=== PATIENT | female | born 1975 | race Caucasian/White ===

== ENCOUNTER 2022-08-22 13:58 | Emergency (ER) | payer BC, SELFPAY ==
--- NOTE | 2022-08-22 13:56 | ECG_ITS ---
APPROVED REPORT Exam: Resting ECG HR:71 bpm ECG Measurements Heart Rate 71 AXES NJ 139 P 59 QRSd 94 QRS 83 QT 374 T 69 QTc 397 Conclusion SINUS RHYTHM NORMAL ECG UNCONFIRMED REPORT Electronically signed by : Edwin Obrien MD 08/23/2022 09:23:13
[2022-08-22 14:01] VITALS: BP 115/64; PULSE 75; RESP 18; TEMP 36.8; O2SAT 100; BMI 31.5
--- NOTE | 2022-08-22 14:10 | XR_ITS ---
FINAL REPORT TECHNIQUE: Chest PA & Lateral CLINICAL HISTORY: chest pain FINDINGS: 2 views of the chest were performed. The heart size is normal. The mediastinum is within normal limits. There is no acute cardiopulmonary process. There are no pleural effusions. There is no pneumothorax. The bony thorax appears intact. IMPRESSION: No acute cardiopulmonary process. Reviewed, Interpreted and Dictated by Star Smith III, MD Transcribed by Stanislav Tucker Authenticated and [facility]
--- NOTE | 2022-08-22 14:18 | HMH.EDGENADL ---
Discharge Plan Disposition Patient Disposition: Home, Self-Care Condition: Good Prescriptions Prescriptions: New metformin 500 mg tablet 500 mg PO BID Qty: 60 0RF Referrals Follow up/Referrals: Provider,Referral, MD [Primary Care Provider] - See instructions Activity Restrictions/Add. Instructions Additional Instructions/Restrictions: Take metformin as prescribed. You are being provided with a list of physicians available for follow-up of your condition. Please call a physician on this list to arrange a follow-up appointment as soon as possible. Clinical Impressions Clinical Impression: Acute hyperglycemia Discharge ED Provider: Ovidio Liu General Adult HPI General Chief complaint: Weakness Stated complaint: chest pain Time Seen by Provider: 08/22/22 14:27 Mode of Arrival: Wheelchair Source of Information: Patient Limitations: No Limitations Description of Symptoms (Recalled from ER Triage Doc. by RN): PT STATES SHE HASN'T FELT WELL FOR A WEEK, SHE STATES SHE HAS GOTTEN PROGRESSIVELY WORSE THE LAST 2 DAYS, VERY TIRED, POUNDING HEARTBEAT, CONSTANT HEADACHE, AND DIZZINESS History of Present Illness HPI narrative: Patient states that she has not felt bad for about a week. She says that she feels hot and cold and sweats at times, but temperature has been normal at home. She has taken her blood pressure and it has also been fine. She has used her relatives glucose meter and her blood sugar has been running high, which she says has happened 1 time previously, but says she has not been diagnosed with diabetes. She has headache, feels like her heart is beating hard but not fast. She feels woozy or dizzy. States she feels worse after she eats. States she does not have a primary care provider because she is never sick. States that she has a history of irritable bowel syndrome. She is a smoker. Denies alcohol use or drug use. Feels fatigued. Currently on her menses. Related Data Previous Rx's Medication Instructions Recorded metformin 500 mg tablet 500 mg PO BID #60 tabs 08/22/22 Allergies Allergy/AdvReac Type Severity Reaction Status Date / Time No Known Allergies Allergy Verified 08/22/22 14:07 [facility] Disclaimer: The information contained in this section may have been updated after the patient was seen, as this information can be updated by other users. Social History Smoking Status: Never smoker ROS Obtained: Yes Systems reviewed as appropriate & no additional complaints except as documented Constitutional Constitutional: Reports chills, Reports excessive sweating, Reports fatigue, Denies fever(s), Reports headache(s) and Reports weakness ENT Ears, Nose, Mouth, and Throat: Reports headache(s), Denies nasal discharge and Denies sore throat Cardiovascular Cardiovascular: Denies chest pain and Reports palpitations (Heart is beating hard ) Respiratory Respiratory: Denies shortness of breath and Denies cough Gastrointestinal Gastrointestingal: Denies abdominal pain, constipation, diarrhea or vomiting Genitourinary Female Genitourinary: Denies difficulty voiding, Denies dysuria, Denies flank pain and Reports urinary urgency (for months) Musculoskeletal Musculoskeletal: Denies numbness Neurologic Neurologic: Reports headache(s), Denies numbness and Reports weakness Endocrine Endocrine: Reports as per HPI, Reports excessive sweating, Reports fatigue, Reports palpitations (Heart is beating hard ) and Reports polyuria Physical Exam General General appearance: alert and in no apparent distress Head Head exam: atraumatic and normocephalic Eye Eye exam: Present normal appearance and EOMI ENT ENT exam: Present mucous membranes moist Neck Neck exam: Present normal inspection and trachea midline Chest Chest inspection: Present normal inspection and symmetric chest wall rise Respiratory Respiratory exam: Present normal lung sounds bilaterally; Absent respiratory distress Cardiov
[2022-08-22 14:23] LABS: Chloride 104 mmol/L (98-107)
[2022-08-22 14:24] LABS: Potassium 3.9 mmoL/L (3.5-5.1); Sodium 140 mmol/L (136-145)
[2022-08-22 14:26] LABS: Basophils # 0.2 K/mm3 (0-0.2); Basophils % 1.7 % (0.1-2.0); Blood Urea Nitrogen 20 mg/dl (7-17); Creatinine Clearance Estimated 124 mL/min (50-200); Eosinophils # 0.1 K/mm3 (0.0-0.4); Eosinophils % 1.1 % (0.1-12.0); Estimated Glomerular Filt Rate 68 ml/min (>60); GFR (African American) 82 ML/MIN (>60); Hemoglobin 16.3 g/dL (12.2-16.2); Lymphocytes # 3.2 K/mm3 (0.7-4.5); Lymphocytes % 32.8 % (10-50); Mean Corpuscular HGB Conc 32.6 g/dL (31.8-35.4); Mean Corpuscular Hemoglobin 30.2 pg (27.0-31.2); Mean Corpuscular Volume 92.5 fl (81-99); Mean Platelet Volume 7.2 fl (7.4-10.4); Monocytes # 0.5 K/mm3 (0.1-1.0); Monocytes % 5.5 % (1.7-9.3); Neutrophils # 5.7 K/mm3 (1.8-7.8); Neutrophils % 58.9 % (37.0-80.0); Platelet Count 322 K/mm3 (142-424); Red Blood Count 5.41 M/mm3 (4.20-5.40); Red Cell Distribution Width 13.9 % (11.5-17.5); White Blood Count 9.6 K/mm3 (4.8-10.8)
[2022-08-22 14:27] LABS: Anion Gap 12.9 mEq/L (5-15); Calcium 10.2 mg/dl (8.4-10.2); Carbon Dioxide 27 mmol/L (22.0-30.0); Glucose 157 mg/dl (74-100)
[2022-08-22 14:31] VITALS: BP 127/64; PULSE 69; O2SAT 99
[2022-08-22 14:41] LABS: Troponin I < 0.01 ng/ml (0.00-0.034)
--- NOTE | 2022-08-22 14:50 | PC.NURSE ---
Pt aware of need for urine sample.
[2022-08-22 14:51] LABS: Coronavirus 19, PCR Not Detected (NotDetected); Influenza A, PCR Not Detected (NotDetected); Influenza B, PCR Not Detected (NotDetected)
--- NOTE | 2022-08-22 14:57 | PC.NURSE ---
Assisted pt to bathroom. Provided supplies to collect urine sample.
[2022-08-22 15:10] VITALS: BP 145/81; PULSE 66; RESP 20; O2SAT 97
[2022-08-22 15:13] LABS: Alanine Aminotransferase 24 U/L (12-78); Albumin Level 4.3 g/dl (3.5-5.0); Alkaline Phosphatase 127 U/L (38-126); Aspartate Amino Transferase 30 U/L (14-36); Bilirubin,Direct 0.2 mg/dl (0.0-0.4); Bilirubin,Indirect 0.1 mg/dL (0.0-0.9); Bilirubin,Total 0.3 mg/dl (0.2-1.3); Total Protein,Serum 7.4 g/dl (6.3-8.2)
[2022-08-22 15:16] LABS: Microscopic, Urine URINE MICROSCOPIC (MICROSCOPIC)
[2022-08-22 15:20] LABS: Appearance,Urine CLEAR (Clear); Bilirubin,Urine Negative (Negative); Blood, Urine 3+ (Negative); Color,Urine YELLOW (Yellow); Glucose,Urine (UA) 2+ (Negative); Ketones,Urine Negative (Negative); Leukocyte Esterase,Urine Negative (Negative); Nitrate,Urine Negative (Negative); Protein,Urine Negative (Negative); Specific Gravity, Urine 1.025 (1.005-1.030); Urobilinogen,Urine 0.2 EU/dl (0.2)
[2022-08-22 15:31] VITALS: BP 124/65; PULSE 60; O2SAT 97
[2022-08-22 15:36] LABS: Squamous Epithelial Cell,Urine Occasional #/hpf (0-5); WBC,Urine Occasional #/hpf (0-3)
[2022-08-22 16:00] VITALS: BP 149/86; PULSE 61; O2SAT 97
--- NOTE | 2022-08-22 16:08 | PC.NURSE ---
Updated pt. Call light within reach. No questions or concerns voiced at this time.
[2022-08-22 16:29] VITALS: BP 121/58; PULSE 57; RESP 18; TEMP 36.8; O2SAT 97
[2022-08-22 16:33] LABS: Free Thyroxine Index 2.9 ug/dL (5.93-13.13); T4 (Thyroxine) 9.1 ug/dl (5.53-11.0); Triiodothryronine (T3) Uptake 32 % (23.5-40.5)
[2022-08-22 16:47] LABS: Thyroid Stimulating Hormone 2.26 uIU/mL (0.465-4.68)
== END 2022-08-22 16:31 | disposition home or self-care (01) ==
PROVIDERS: Emergency Provider Emergency Medicine
DX: R07.9 Chest pain, unspecified (principal); R00.2 Palpitations; R73.9 Hyperglycemia, unspecified; R42 Dizziness and giddiness; R53.1 Weakness; R61 Generalized hyperhidrosis; Z20.822 Contact with and (suspected) exposure to COVID-19; R51.9 Headache, unspecified; R53.82 Chronic fatigue, unspecified; F17.210 Nicotine dependence, cigarettes, uncomplicated; Z79.84 Long term (current) use of oral hypoglycemic drugs
CPT/HCPCS: 71046; 80048; 80076; 81001; 83036; 84436; 84443; 84479; 84484; 85025; 93005; 99284; C9803; U0003; U0005

== ENCOUNTER → 2023-03-28 14:03 | Outpatient (CLI) | payer BC, SELFPAY ==
[2023-03-28 14:53] LABS: Blood Urea Nitrogen 23 mg/dl (7-17); Estimated Glomerular Filt Rate 78 ml/min (>60); GFR (African American) 94 ML/MIN (>60)
== END ==
PROVIDERS: PCP Nurse Practitioner Family; Visit Provider Nurse Practitioner Family
DX: Z01.812 Encounter for preprocedural laboratory examination (principal)
CPT/HCPCS: 36415; 82565; 84520

== ENCOUNTER → 2023-03-31 12:53 | Outpatient (CLI) | payer BC, SELFPAY ==
--- NOTE | 2023-03-31 12:54 | MR_ITS ---
FINAL REPORT TECHNIQUE: Multiplanar and multisequence imaging of the shoulder was obtained without and with intravenous contrast. CLINICAL HISTORY: intra-articular loose bodies bicep tendon sheath. ABNORMAL IMAGING AT [facility]. RIGHT SHOULDER PAIN COMPARISON: None FINDINGS: Bones and joints: There is no acute fracture, edema, or pathologic marrow replacement. Acromioclavicular joint degenerative disease is present and there is osteophytosis which narrows the supraspinatus outlet. There is no abnormal bone marrow enhancement after contrast administration. Rotator cuff: There is no full-thickness rotator cuff tendon tear. No biceps tendon dislocation is present. There is no fatty atrophy of the rotator cuff muscles. Labrum: No labral tear is identified. The glenohumeral ligaments appear intact. The biceps tendon is within normal limits. No biceps tendon tear is identified. There is no convincing evidence of loose bodies in the biceps tendon sheath. Other: There is no joint effusion. Remaining soft tissues are within normal limits. IMPRESSION: No full-thickness tear of the rotator cuff tendons or the labrum. No convincing evidence of loose bodies in the biceps tendon sheath are seen. Reviewed, Interpreted and Dictated by Mariya Sellers MD Transcribed by Nicolasa John Authenticated and [facility]
== END ==
PROVIDERS: PCP Nurse Practitioner Family; Visit Provider Nurse Practitioner Family
DX: M25.511 Pain in right shoulder (principal); M24.00 Loose body in unspecified joint; R93.89 Abnormal findings on diagnostic imaging of other specified body structures
CPT/HCPCS: 73223; A9576

== ENCOUNTER → 2023-06-19 15:50 | Outpatient (CLI) | payer BC, SELFPAY ==
[2023-06-19 12:50] LABS: Basophils % 0.5 % (0.1-2.0); Eosinophils # 0.1 K/mm3 (0.0-0.4); Eosinophils % 1.2 % (0.1-12.0); Hematocrit 45.1 % (37.0-47.0); Hemoglobin 14.7 g/dL (12.2-16.2); Lymphocytes # 1.9 K/mm3 (0.7-4.5); Lymphocytes % 21.9 % (10-50); Mean Corpuscular HGB Conc 32.7 g/dL (31.8-35.4); Mean Corpuscular Hemoglobin 30.1 pg (27.0-31.2); Mean Corpuscular Volume 92.1 fl (81-99); Mean Platelet Volume 8.6 fl (7.4-10.4); Monocytes # 0.4 K/mm3 (0.1-1.0); Monocytes % 4.9 % (1.7-9.3); Neutrophils # 6.2 K/mm3 (1.8-7.8); Neutrophils % 71.5 % (37.0-80.0); Platelet Count 269 K/mm3 (142-424); Red Cell Distribution Width 13.6 % (11.5-17.5); White Blood Count 8.6 K/mm3 (4.8-10.8)
[2023-06-19 12:54] LABS: Alanine Aminotransferase 32 U/L (12-78); Albumin Level 4.3 g/dl (3.5-5.0); Albumin/Globulin Ratio 1.7 (1.1-1.8); Alkaline Phosphatase 67 U/L (38-126); Aspartate Amino Transferase 34 U/L (14-36); Bilirubin,Total 0.4 mg/dl (0.2-1.3); Blood Urea Nitrogen 21 mg/dl (7-17); Calcium 9.4 mg/dl (8.4-10.2); Carbon Dioxide 21 mmol/L (22.0-30.0); Chloride 110 mmol/L (98-107); Estimated Glomerular Filt Rate 77 ml/min (>60); GFR (African American) 93 ML/MIN (>60); Globulin 2.6 g/dL (1.3-3.2); Glucose 177 mg/dl (74-100); Sodium 140 mmol/L (136-145); Total Protein,Serum 6.9 g/dl (6.3-8.2)
[2023-06-19 15:01] LABS: Hemoglobin A1C 5.5 % (4.0-6.0)
== END ==
PROVIDERS: PCP Nurse Practitioner Family; Visit Provider Nurse Practitioner Family
DX: E11.9 Type 2 diabetes mellitus without complications (principal); Z79.84 Long term (current) use of oral hypoglycemic drugs
CPT/HCPCS: 80053; 83036; 85025

== ENCOUNTER 2023-09-17 15:40 | Outpatient (CLI) | payer BC, SELFPAY ==
[2023-09-17 12:25] LABS: Coronavirus 19, PCR Not Detected (NotDetected); Influenza A, PCR Not Detected (NotDetected); Influenza B, PCR Not Detected (NotDetected)
== END 2023-09-17 23:59 ==
LOC: LAB.DROPOF 15:40
PROVIDERS: PCP Nurse Practitioner Family; Visit Provider Nurse Practitioner Family
DX: R06.02 Shortness of breath (principal); R50.9 Fever, unspecified; R05.9 Cough, unspecified
CPT/HCPCS: 87636

== ENCOUNTER 2023-10-23 14:48 | Emergency (ER) | payer BC, SELFPAY ==
[2023-10-23 14:50] VITALS: BP 149/93; PULSE 72; RESP 18; TEMP 36.9; O2SAT 98; BMI 32.5
[2023-10-23 15:00] VITALS: BP 147/80; PULSE 65; O2SAT 98
--- NOTE | 2023-10-23 15:26 | XR_ITS ---
FINAL REPORT CLINICAL HISTORY: left 2nd and 3rd mcp pain, injury FINDINGS: LEFT HAND Three views were obtained. There is no fracture or dislocation. The joint spaces appear normal. No soft tissue abnormality is identified. IMPRESSION: No acute process. Reviewed, Interpreted and Dictated by Star Smith III, MD Transcribed by Divya Goldman Authenticated and . [facility]
--- NOTE | 2023-10-23 15:27 | ED_ITS ---
Discharge Plan Disposition Patient Disposition: Home, Self-Care Prescriptions Prescriptions: No Action prednisone 20 mg tablet 20 mg PO BID 5 Days Qty: 10 0RF azithromycin 250 mg tablet See Rx Instructions PO .COMPLEX Qty: 6 0RF Rx Instructions: take 500 mg today (day 1), then 250 mg for 4 days (days 2-5) duloxetine [Cymbalta] 30 mg capsule,delayed release(DR/EC) 30 mg PO DAILY duloxetine [Cymbalta] 60 mg capsule,delayed release(DR/EC) 60 mg PO DAILY bupropion HCl [Wellbutrin SR] 150 mg tablet sustained-release 12 hr 150 mg PO BID (DME) blood-glucose meter [Blood Glucose Monitoring] Kit See Rx Instructions .ROUTE .MEDSUPPLY Qty: 1 0RF Rx Instructions: BID (DME) lancets 30 gauge misc See Rx Instructions .ROUTE .MEDSUPPLY Qty: 200 2RF Rx Instructions: BID (DME) OneTouch Ultra Test Strip See Rx Instructions .ROUTE .COMPLEX Qty: 150 0RF Dose Instruction: USE 1 STRIP TO CHECK GLUCOSE TWICE DAILY Rx Instructions: USE 1 STRIP TO CHECK GLUCOSE TWICE DAILY metformin 500 mg tablet See Rx Instructions .ROUTE .COMPLEX Qty: 60 2RF Dose Instruction: Take 1 tablet by mouth twice daily Rx Instructions: Take 1 tablet by mouth twice daily Referrals Follow up/Referrals: Bala Seaman APRN [Primary Care Provider] - See instructions Gordy Sabillon DO [Staff Physician] - See instructions Activity Restrictions/Add. Instructions Additional Instructions/Restrictions: No evidence of fracture or dislocation. Please follow-up with Dr. Sabillon in 1 to 2 weeks if you are not improving. You may give yourself 800 mg of ibuprofen 3 times a day and use ice throughout the day as discussed. I also recommend rest until this is improved. Clinical Impressions Clinical Impression: Hand sprain Discharge ED Provider: Silvestre Nguyen General Adult [facility] General Chief complaint: Extremity Injury, Upper Stated complaint: AO Pain in L Middle finger, heard pop Time Seen by Provider: 10/23/23 15:23 Mode of Arrival: Ambulatory Source of Information: Patient Limitations: No Limitations Description of Symptoms (Recalled from ER Triage Doc. by RN): Patient presents to ER with complaints of left middle finger pain. States she was carrying groceries yesterday and was carrying a 6 pack of pop that was hooked to her middle finger and it popped. States her pain got worse throughout the night. Notices some swelling. History of Present Illness HPI narrative: Patient is a 48-year-old female presents today with pain in the left second and third metacarpal phalangeal joint on the dorsal aspect of her left hand states that she was carrying very heavy groceries and felt a pop in her hand while she had multiple groceries up to that dorsal aspect of her hand. She subsequently has had swelling and bruising on the dorsal aspect in the region stated above. She has full extension and flexion in this region. Denies any other past medical history she has been taking Tylenol and ibuprofen with some improvement but not significant. Related Data Home Medications Medication Instructions Recorded Confirmed bupropion HCl 150 mg tablet,12 hr 150 mg PO BID 08/29/22 09/17/23 sustained-release (Wellbutrin SR) duloxetine 30 mg capsule,delayed 30 mg PO DAILY 08/29/22 09/17/23 release (Cymbalta) duloxetine 60 mg capsule,delayed 60 mg PO DAILY 08/29/22 09/17/23 release (Cymbalta) Previous Rx's Medication Instructions Recorded blood-glucose meter (Blood Glucose #1 ea 08/29/22 Monitoring kit) lancets 30 gauge #200 ea 08/29/22 blood sugar diagnostic (OneTouch #150 ea 12/26/22 Ultra Test strips) metformin 500 mg tablet See Rx Instructions .Route 07/21/23 .COMPLEX #60 tabs azithromycin 250 mg tablet See Rx Instructions PO .COMPLEX #6 09/17/23 tabs prednisone 20 mg tablet 20 mg PO BID 5 days #10 tabs 09/17/23 Allergies Allergy/AdvReac Type Severity Reaction Status Date / Time No Known Allergies Allergy Verified 09/17/23 09:11 [facility] Disclaimer: The information contained in this section may have been updated after the patient was seen, as this information can be updated by other users. Medical History (Updated 10/23/23 @ 15:29 by Susan Hogan MD) Intra-articular loose body Social History Smoking Status: Current every day smoker alcohol intake: never current occupational status: employed Travel in the last 8 weeks: None ROS Obtained: Yes All systems reviewed & no additional complaints except as documented Physical Exam General General appearance: alert Respiratory Respiratory exam: Present normal lung sounds bilaterally Cardiovascular Cardiovascular exam: Present regular rate Extremities Exam Extremities exam: Present other (Left hand on the dorsal aspect of the MCP and the hand on the second and third digit there is swelling and ecchymosis she has full extension and flexion with FDS FDP with normal neurovascular exam as well) Neurological Exam Neurological exam: Present alert Medical Decision Making Devan Inquiry Pt receiving controlled substance: No Vital Signs: 10/23/23 14:50 10/23/23 15:00 Temperature 98.5 F Temperature Source Oral Pulse Rate 65 Pulse Rate [Left] 72 Respiratory Rate 18 Blood Pressure 147/80 H Blood Pressure [Right Arm] 149/93 H Blood Pressure Mean 110 Blood Pressure Mean [Right Arm] 111 Blood Pressure Source [Right Arm] Automatic Cuff 02 Sat by Pulse Oximetry 98 98 Oxygen Delivery Method Room Air Orders (Tests/Meds): ORDERS Category Date Time Status Hand XR left minimum 3 views [XR hand LT min 3V] Stat Exams 10/23/23 15:26 Taken Medical Decision Narrative: Patient with above history concerning for possible ligamental or tendon injury. However she has a normal tendon exam so this could be a partial tear. Will get a plain film to rule out fracture or dislocation but otherwise we will have her referred to orthopedic surgery for a possible MRI if she is not improving. X-rays performed at person interpreted which show no acute fracture or dislocation particular in the areas of concern. She has been advised to take ibuprofen and ice and to discontinue work until this is improved and to follow- up with orthopedic surgery in 1 to 2 weeks if she is not improving. She was discharged in stable condition. Critical Care Critical Care Time Critical Care Time: No
[2023-10-23 15:55] VITALS: BP 147/80; PULSE 74; RESP 18; TEMP 36.9; O2SAT 97
== END 2023-10-23 15:56 | disposition home or self-care (01) ==
PROVIDERS: Emergency Provider Emergency Medicine; PCP Nurse Practitioner Family
DX: M79.645 Pain in left finger(s) (principal); F17.200 Nicotine dependence, unspecified, uncomplicated; X50.0XXA Overexertion from strenuous movement or load, initial encounter; S63.92XA Sprain of unspecified part of left wrist and hand, initial encounter
CPT/HCPCS: 73130; 99283

== ENCOUNTER 2023-12-11 11:29 | Outpatient (CLI) | payer BC, SELFPAY | END 2023-12-11 23:59 | LOC: LAB.DROPOF 11:30 | PROVIDERS: PCP Nurse Practitioner Family; Visit Provider Nurse Practitioner Family | DX: R39.15 Urgency of urination (principal) | CPT/HCPCS: 87086 ==

== ENCOUNTER 2023-12-24 10:53 | Outpatient (CLI) | payer BC, SELFPAY ==
--- NOTE | 2023-12-24 10:53 | MM_ITS ---
PROCEDURE INFORMATION: Exam: MG Bilateral Screening 3D Mammography Exam date and time: 12/24/2023 10:42 AM Age: 48 years old Clinical indication: Screening mammogram TECHNIQUE: Imaging protocol: Bilateral Screening tomosynthesis and 2D mammography including computer-aided detection (CAD) when performed. COMPARISON: No relevant prior studies available. FINDINGS: MAMMOGRAPHY: Breast composition: There are scattered areas of fibroglandular density. Mass: None. Architectural distortion: No new or suspicious architectural distortion. Calcifications: No new or suspicious calcifications are present Asymmetric density: No new or suspicious asymmetric density is present Skin thickening: None. Axillary adenopathy: None. IMPRESSION: No mammographic evidence of malignancy. Recommend annual screening mammography unless otherwise clinically indicated. ASSESSMENT: BI-RADS category 1: Negative.
== END 2023-12-24 23:59 ==
LOC: RAD 10:53
PROVIDERS: PCP Nurse Practitioner Family; Visit Provider Nurse Practitioner Family
DX: Z12.31 Encounter for screening mammogram for malignant neoplasm of breast (principal)
CPT/HCPCS: 77063; 77067

== ENCOUNTER → 2024-01-14 12:56 | Outpatient (CLI) | payer BC, SELFPAY | LOC: SL 01-16 12:57 | PROVIDERS: PCP Nurse Practitioner Family; Visit Provider Nurse Practitioner Family | DX: G47.33 Obstructive sleep apnea (adult) (pediatric) (principal); G47.36 Sleep related hypoventilation in conditions classified elsewhere | CPT/HCPCS: G0399 ==

== ENCOUNTER 2024-01-21 09:31 | Outpatient (CLI) | payer BC, SELFPAY ==
[2024-01-21 09:48] LABS: Basophils # 0.1 K/mm3 (0-0.2); Basophils % 0.9 % (0.1-2.0); Eosinophils # 0.1 K/mm3 (0.0-0.4); Eosinophils % 1.2 % (0.1-12.0); Hematocrit 42.7 % (37.0-47.0); Lymphocytes # 2.4 K/mm3 (0.7-4.5); Lymphocytes % 24.6 % (10-50); Mean Corpuscular HGB Conc 32.7 g/dL (31.8-35.4); Mean Corpuscular Hemoglobin 30.8 pg (27.0-31.2); Mean Corpuscular Volume 94.1 fl (81-99); Monocytes # 0.4 K/mm3 (0.1-1.0); Monocytes % 3.8 % (1.7-9.3); Neutrophils # 6.8 K/mm3 (1.8-7.8); Neutrophils % 69.6 % (37.0-80.0); Platelet Count 245 K/mm3 (142-424); Red Blood Count 4.54 M/mm3 (4.20-5.40); Red Cell Distribution Width 14.1 % (11.5-17.5); White Blood Count 9.8 K/mm3 (4.8-10.8)
[2024-01-21 10:15] LABS: Alanine Aminotransferase 36 U/L (12-78); Albumin/Globulin Ratio 1.7 (1.1-1.8); Alkaline Phosphatase 67 U/L (38-126); Anion Gap 13.9 mEq/L (5-15); Aspartate Amino Transferase 38 U/L (14-36); Bilirubin,Total 0.3 mg/dl (0.2-1.3); Blood Urea Nitrogen 21 mg/dl (7-17); Calcium 9.4 mg/dl (8.4-10.2); Carbon Dioxide 25 mmol/L (22.0-30.0); Chloride 106 mmol/L (98-107); Estimated Glomerular Filt Rate 67 ml/min (>60); GFR (African American) 82 ML/MIN (>60); Globulin 2.4 g/dL (1.3-3.2); Glucose 128 mg/dl (74-100); Potassium 3.9 mmoL/L (3.5-5.1); Sodium 141 mmol/L (136-145); Total Protein,Serum 6.4 g/dl (6.3-8.2)
[2024-01-21 10:46] LABS: Hemoglobin A1C 6.3 % (4.0-6.0)
== END 2024-01-21 23:59 | disposition home or self-care (01) ==
LOC: LAB 09:32
PROVIDERS: PCP Nurse Practitioner Family; Visit Provider Obstetrics & Gynecology
DX: N93.9 Abnormal uterine and vaginal bleeding, unspecified (principal)
CPT/HCPCS: 36415; 80053; 83036; 84443; 85025

== ENCOUNTER 2024-01-27 13:07 | Outpatient (CLI) | payer BC, SELFPAY ==
--- NOTE | 2024-01-27 13:09 | US_ITS ---
PROCEDURE: US TRANSVAGINAL CLINICAL INDICATION: AUB COMPARISON: No exams were available for comparison FINDINGS: Transvaginal sonographic images of the pelvis were obtained. UTERUS: 9.3cm x 6.1cmx 5.2cm anteverted with a combined endometrial thickness of 10.7mm. There is a small nabothian cyst in the cervix. There is a posterior fibroid measuring 0.8 cm x 0.7 cm x 0.9 cm. LEFT OVARY: 3.8 cmx2.0cmx2.0cm with a volume of 7.8ml. There is a dominant follicle measuring 1.9 cm x 1.5 cm x 1.8 cm. There is a 2nd follicle that appears hemorrhagic and measures 1.6 cm x 1.9 cm x 1.3 cm. RIGHT OVARY: 2.1cmx 1.2cmx1.2cm with a volume of 1.6ml. Right ovary is more difficult to visualize. Both ovaries are seen and appear normal. Doppler flow to both ovaries are seen. There is no fluid in the cul-de-sac. IMPRESSION: 1. Anteverted, bulky uterus. The endometrium is normal. 2. There is a small posterior fibroid measuring 0.9 cm. 3. Both ovaries are seen and appear normal. There are 2 follicles on the left ovary. 4. No fluid in the cul-de-sac. Dictated by: Valentin Mckeon MD 01/27/2024 18:00 Valentin Mckeon MD in OV 01/27/2024 18:00
== END 2024-01-27 23:59 | disposition home or self-care (01) ==
LOC: RAD 13:07
PROVIDERS: PCP Nurse Practitioner Family; Visit Provider Obstetrics & Gynecology
DX: N93.9 Abnormal uterine and vaginal bleeding, unspecified (principal); N92.0 Excessive and frequent menstruation with regular cycle
CPT/HCPCS: 76830

== ENCOUNTER 2024-03-25 10:13 | Outpatient (CLI) | payer BC, SELFPAY ==
[2024-03-25 10:27] LABS: Basophils # 0.1 K/mm3 (0-0.2); Basophils % 1.1 % (0.1-2.0); Eosinophils # 0.1 K/mm3 (0.0-0.4); Eosinophils % 1.1 % (0.1-12.0); Hematocrit 44.5 % (37.0-47.0); Lymphocytes # 1.9 K/mm3 (0.7-4.5); Lymphocytes % 26.7 % (10-50); Mean Corpuscular HGB Conc 33.6 g/dL (31.8-35.4); Mean Corpuscular Volume 95.1 fl (81-99); Mean Platelet Volume 7.4 fl (7.4-10.4); Monocytes # 0.3 K/mm3 (0.1-1.0); Monocytes % 3.9 % (1.7-9.3); Neutrophils # 4.8 K/mm3 (1.8-7.8); Neutrophils % 67.2 % (37.0-80.0); Platelet Count 254 K/mm3 (142-424); Red Blood Count 4.68 M/mm3 (4.20-5.40); Red Cell Distribution Width 14.2 % (11.5-17.5); White Blood Count 7.1 K/mm3 (4.8-10.8)
[2024-03-25 11:10] LABS: Alanine Aminotransferase 22 U/L (12-78); Albumin Level 4.1 g/dl (3.5-5.0); Albumin/Globulin Ratio 1.6 (1.1-1.8); Alkaline Phosphatase 68 U/L (38-126); Anion Gap 10.1 mEq/L (5-15); Aspartate Amino Transferase 26 U/L (14-36); Bilirubin,Total 0.6 mg/dl (0.2-1.3); Blood Urea Nitrogen 22 mg/dl (7-17); Calcium 9.7 mg/dl (8.4-10.2); Carbon Dioxide 23 mmol/L (22.0-30.0); Chloride 109 mmol/L (98-107); Estimated Glomerular Filt Rate 77 ml/min (>60); GFR (African American) 93 ML/MIN (>60); Globulin 2.6 g/dL (1.3-3.2); Glucose 186 mg/dl (74-100); Potassium 4.1 mmoL/L (3.5-5.1); Sodium 138 mmol/L (136-145); Total Protein,Serum 6.7 g/dl (6.3-8.2)
[2024-03-25 11:27] LABS: HCG,Quantitative < 2 mIU/ml (0-5.42)
== END 2024-03-25 23:59 | disposition home or self-care (01) ==
LOC: LAB 10:14
PROVIDERS: PCP Nurse Practitioner Family; Visit Provider Obstetrics & Gynecology
DX: Z01.818 Encounter for other preprocedural examination (principal); N93.9 Abnormal uterine and vaginal bleeding, unspecified
CPT/HCPCS: 36415; 80053; 84702; 85025

== ENCOUNTER 2024-04-01 07:00 | Day surgery (SDC) | payer BC, SELFPAY ==
[2024-04-01] VITALS (14 sets, daily range): BP systolic 94–164; BP diastolic 55–79; PULSE 58–92; RESP 14–20; TEMP 36.2–36.6; O2SAT 92–100; BMI 34.7
[2024-04-01] MEDS: SODIUM CHLORIDE IRRIG SOLUTION 3,000 ML 999 ML IR (07:27)
--- NOTE | 2024-04-01 07:27 | P.PNANES_ITS ---
[facility] Disclaimer: The information contained in this section may have been updated after the patient was seen, as this information can be updated by other users. Medical History Uterine fibroid < 1 cm posterior uterus Abnormal uterine bleeding Depression Endometriosis Diabetes mellitus Intra-articular loose body Surgical History Hx of dilation and curettage H/O knee surgery Hx of cholecystectomy H/O Spinal surgery Family History Grandmother Cancer breast Social History Smoking Status: Current every day smoker alcohol intake: never substance use type: denies use current occupational status: employed Travel in the last 8 weeks: None [facility] Anesthesia Checklist Patient Identification Patient Identification: Arm Band and Verbal (Name & ) Structural Data Admitted From: Home Planned Operative Procedure/s: Hysteroscopy, D&C, Novasure, Myosure Consent for Planned Operative Procedure(s) Verified: Yes Verified Documents: Surgical Consent and History and Physical NPO Status Verified Time NPO: 22:00 Chart Verification Results Verified: CBC, BMP, ECG and HCG Additional verifications Fingerstick Blood Glucose: 122 Patient : No Anesthesia Reactions: No Cardiovascular Assessment Heart Sounds: S1 & S2 Pulse Rhythm: Irregular Peripheral Edema: No Airway Assessment Mallampati Score:: Class II C-Spine Mobility Assessed: Yes (FROM) TMJ Mobility Assessed: Yes Dentition: Poor Dentition (Many missing; many severely carried. Nothing loose per pt.) Neurological Assessment Level of Consciousness: Awake, Alert, Appropriate and Follows Commands Hx Seizures: No Numbness or tingling in extremities: No Anesthesia Plan Anesthesia Risk discussed: Yes Anesthesia Plan: Verified ASA Class: III Anesthesia Type: General
[2024-04-01 07:31] LABS: POC Glucose,Bedside 122 (70-110)
[2024-04-01] MEDS: LACTATED RINGERS 1000ML 1,000 ML 25 ML IV (07:32)
[2024-04-01] MEDS: ACETAMINOPHEN 500MG TAB 1000 MG PO (07:32)
--- NOTE | 2024-04-01 08:37 | P.PNANES_ITS ---
[facility] Anesthesia Record Part I Anesthesia Record I Intake, IV Amount: 800 Hydration: Adequate Estimated blood loss (mL): 5 Urine output (mL): 100 Blood Products used (#): none Blood Pressure: 94/55 SaO2: 97 Pulse Rate: 79 Airway Patency: Patent Respiratory Rate: 20 Temperature: 97.2 F Patient is:: Awake (Talking), Nasal O2 (2L/min) and Stable Stable to PACU at:: 08:35
[2024-04-01] MEDS: MORPHINE 2MG/ML SYRINGE 2 MG IV (08:58)
--- NOTE | 2024-04-01 09:02 | P.OP_ITS ---
Date of procedure: 04/01/24 Pre-op Diagnosis:: 1. Abnormal uterine bleeding 2. Uterine fibroid 3. Bulky uterus 4. Live Tick noted on inside of right thigh during position and surgical prep Post-op Diagnosis:: 1. Abnormal uterine bleeding 2. Uterine fibroid 3. Bulky uterus 4. Live Tick noted on inside of right thigh during position and surgical prep Procedure performed:: 1. Removal of tick 2. Hysteroscopy, D&C, Novasure endometrial ablation Surgeon:: Yolande Montana DO [employer] Laboratory Assistant(s):: N/a CHEMICAL LABORATORY SCIENTIST:: Cindy Rowley Anesthesia: GETA Estimated blood loss (mL): 5 Clinical Note:: Mrs Feli Hess is a 48 yo P2002 who presents to [facility] for scheduled procedure. She complains of abnormal uterine bleeding for the past 8 years. She reports most months she has a period every 16 days. Occasionally periods will stretch to 28 days. Flow lasts 9-11 days and is heavy the first 4 days. She reports large clots days 3 and 4. Labwork 01/21/24 including TSH was within normal limits. Pelvic ultrasound 01/21/24 demonstrated anteverted, bulky uterus. The endometrium is normal. 2. There is a small posterior fibroid measuring 0.9 cm. 3. Both ovaries are seen and appear normal. There are 2 follicles on the left ovary. 4. No fluid in the cul-de-sac. Her has had a vasectomy. Operative findings:: 1. Live Tick attached to inside of right thigh during patient positioning prior to surgical prep 2. Uterus bulky, anteverted, freely moveable. No adnexal masses palpated 3. Normal appearing endometrial tissue. No endometrial masses or polyps noted Operative note:: Risks, benefits and alternatives were discussed with the patient. Risks include but are not limited to bleeding, infection, uterine perforation and VTE. Patient voiced understanding and agreed to proceed. She was wheeled back to the operating room and placed under general anesthesia without difficulty. She was placed in dorsal lithotomy position and prepped and draped in the normal sterile fashion. A bimanual exam was performed. A weighted Auvard was placed in the vaginal vault. Single tooth tenaculum was placed on anterior lip of the cervix. Uterus sounded to 11. Sequential Abdi dilators were used to dilate the cervical os. Hysteroscope was tested inserted through the cervix without difficulty. Endometrial cavity was evaluated. See findings above. Pictures were taken. Hysteroscope was removed. Medium size sharp curette was inserted through the cervix into the uterine cavity. The endometrial cavity was curetted with a systematic [id number] movement of the curette so that all possible endometrium was sampled. Endometrial curettings will be sent to pathology for review. Novasure sure sound was used to obtain uterine length. Uterus measured 5 cm in length and 4.4 cm in cavity width. Novasure deviced was inserted and ablation was performed per protocol at a power of 121w for 81 seconds. Novasure device was removed. Hysteroscope was reinserted and cavity revealed adequate burn and no uterine perforation. Hysteroscope was removed. Instruments were removed from the vagina. Tenaculum site was noted to be hemostatic. Patient was awaken from anesthesia without difficulty. She was transported to recovery room in stable condition. Patient will be discharged home when awake and ambulating. She was given postop instructions as well as instructions to follow-up in the office in 2 weeks at which time pathology will be reviewed. Condition: stable Disposition: same day Specimens:: 1. Tick 2. Endometrial curettings Complications:: None
[2024-04-01 09:08] LABS: POC Glucose,Bedside 144 (70-110)
[2024-04-01] MEDS: ALBUTEROL 0.083% 2.5 MG/3 ML NEB IH (09:21)
--- NOTE | 2024-04-01 09:25 | SUR.PHASEI ---
0910- pt voiced she was having chest heaviness and difficulty taking in a deep breath. vital sign stable at this time 131/67, 64 heart rate, 100% o2 on room air. consulted with anesthesia and an albuterol neb treatment was ordered at this time. pt voiced after neb treatment that she feels much better.
--- NOTE | 2024-04-01 14:06 | EXP.ANES.II ---
[facility] Anesthesia Record Part II Anesthesia Record Part II Discharge Time: 09:30 Destination: Surgical Day Care (OP Surgery) PACU nurse assessment reviewed?: Yes Patient Condition:: Good Anesthesia Complications:: None Swallowing reflex intact?: Yes Airway Patency: Patent Cyanosis?: No Blood Pressure: 121/79 SaO2: 95 Respiratory Rate: 16 Pulse Rate: 69 Temperature: 97.2 F Mental Status: Alert & Oriented Pain level:: 3 Nausea and/or vomitting:: None Intake, IV Amount: 800 Hydration: Adequate
[2024-04-08 08:58] LABS: Miscellaneous Test SCANNED IMAGE
== END 2024-04-01 10:01 | disposition home or self-care (01) ==
PROVIDERS: PCP Nurse Practitioner Family; Visit Provider Obstetrics & Gynecology
PROC: (CPT 58563; principal; 2024-04-01 07:30)
DX: N93.9 Abnormal uterine and vaginal bleeding, unspecified (principal); D25.9 Leiomyoma of uterus, unspecified; N85.2 Hypertrophy of uterus; S70.361A Insect bite (nonvenomous), right thigh, initial encounter
CPT/HCPCS: 58563; 82962; 94640; J1100; J1885; J2250; J2270; J2405; J3010; J7120; J7613

== ENCOUNTER 2024-04-13 09:12 | Outpatient (CLI) | payer BC, SELFPAY ==
[2024-04-13 18:54] LABS: Adenovirus,PCR Not Detected (NotDetected); Bordetella Pertussis Not Detected (NotDetected); Chlamydophila Pneumoniae, PCR Not Detected (NotDetected); Coronavirus 19, PCR Not Detected (NotDetected); Coronavirus 229E Not Detected (NotDetected); Coronavirus NL63 Not Detected (NotDetected); Coronavirus OC43 Not Detected (NotDetected); Coronovirus HKU1,PCR Not Detected (NotDetected); Human Metapneumovirus Not Detected (NotDetected); Influenza A, PCR Not Detected (NotDetected); Influenza AH1, 2009 Not Detected (NotDetected); Influenza AH1, PCR Not Detected (NotDetected); Influenza AH3,PCR Not Detected (NotDetected); Influenza B, PCR Not Detected (NotDetected); Mycoplasma Pneumoniae, PCR Not Detected (NotDetected); Parainfluenza 1, PCR Not Detected (NotDetected); Parainfluenza 2, PCR Not Detected (NotDetected); Parainfluenza 3, PCR Not Detected (NotDetected); Parainfluenza 4, PCR Not Detected (NotDetected); Respiratory Syncytial Virus Not Detected (NotDetected); Rhinovirus/Enterovirus Not Detected (NotDetected)
[2024-04-22 09:13] LABS: Miscellaneous Test SCANNED IMAGE
== END 2024-04-13 23:59 | disposition home or self-care (01) ==
LOC: LAB.DROPOF 04-14 09:13
PROVIDERS: PCP Nurse Practitioner Family; Visit Provider Nurse Practitioner Family
DX: L08.9 Local infection of the skin and subcutaneous tissue, unspecified (principal); R69 Illness, unspecified
CPT/HCPCS: 87070; 87077; 87186; 87205; 87581; 87632; 87635; 87798

== ENCOUNTER 2024-05-28 10:59 | Outpatient (CLI) | payer BC, SELFPAY ==
[2024-05-28 11:22] LABS: Basophils # 0.1 K/mm3 (0-0.2); Basophils % 0.9 % (0.1-2.0); Eosinophils # 0.1 K/mm3 (0.0-0.4); Eosinophils % 1.5 % (0.1-12.0); Hematocrit 46.1 % (37.0-47.0); Hemoglobin 14.4 g/dL (12.2-16.2); Lymphocytes # 2.5 K/mm3 (0.7-4.5); Lymphocytes % 25.9 % (10-50); Mean Corpuscular HGB Conc 31.2 g/dL (31.8-35.4); Mean Corpuscular Hemoglobin 30.2 pg (27.0-31.2); Mean Corpuscular Volume 96.7 fl (81-99); Mean Platelet Volume 8.1 fl (7.4-10.4); Monocytes # 0.5 K/mm3 (0.1-1.0); Monocytes % 4.7 % (1.7-9.3); Neutrophils # 6.6 K/mm3 (1.8-7.8); Platelet Count 277 K/mm3 (142-424); Red Blood Count 4.77 M/mm3 (4.20-5.40); Red Cell Distribution Width 14.3 % (11.5-17.5); White Blood Count 9.8 K/mm3 (4.8-10.8)
[2024-05-28 11:43] LABS: Alanine Aminotransferase 29 U/L (12-78); Albumin Level 3.8 g/dl (3.5-5.0); Albumin/Globulin Ratio 1.3 (1.1-1.8); Alkaline Phosphatase 60 U/L (38-126); Anion Gap 8.1 mEq/L (5-15); Aspartate Amino Transferase 35 U/L (14-36); Bilirubin,Total 0.5 mg/dl (0.2-1.3); Blood Urea Nitrogen 18 mg/dl (7-17); Calcium 9.4 mg/dl (8.4-10.2); Carbon Dioxide 24 mmol/L (22.0-30.0); Chloride 108 mmol/L (98-107); Chol/HDL Ratio 4.6 (1-3.5); Cholesterol 242 mg/dl (140-200); Estimated Glomerular Filt Rate 90 ml/min (>60); GFR (African American) 109 ML/MIN (>60); Globulin 2.9 g/dL (1.3-3.2); Glucose 128 mg/dl (74-100); HDL Cholesterol 53 mg/dl (40-60); Potassium 4.1 mmoL/L (3.5-5.1); Sodium 136 mmol/L (136-145); Total Protein,Serum 6.7 g/dl (6.3-8.2); Triglycerides 266 mg/dl (30-150); VLDL Cholesterol 53 mg/dL (0-40)
[2024-05-28 11:47] LABS: Hemoglobin A1C 6.2 % (4.0-6.0)
[2024-05-28 12:02] LABS: T4 (Thyroxine) 8.9 ug/dl (5.53-11.0)
[2024-05-28 12:15] LABS: Thyroid Stimulating Hormone 1.85 uIU/mL (0.465-4.68)
[2024-06-08 04:10] LABS: 1,25 Dihydroxy Vitamin D 26 pg/mL (.); 1,25-Dihydroxy, Vitamin D-2 <10 pg/mL (.); 1,25-Dihydroxy, Vitamin D-3 26 pg/mL (.)
== END 2024-05-28 23:59 | disposition home or self-care (01) ==
LOC: LAB 11:00
PROVIDERS: PCP Nurse Practitioner Family; Visit Provider Nurse Practitioner Family
DX: E11.9 Type 2 diabetes mellitus without complications (principal); Z79.84 Long term (current) use of oral hypoglycemic drugs
CPT/HCPCS: 36415; 80050; 80053; 80061; 82652; 83036; 84436; 84443; 85025

== ENCOUNTER 2024-06-10 11:53 | Outpatient (CLI) | payer BC, SELFPAY ==
[2024-06-10 13:24] VITALS: BMI 36.1
== END 2024-06-10 23:59 | disposition home or self-care (01) ==
LOC: DIETICIAN 11:55
PROVIDERS: PCP Nurse Practitioner Family; Visit Provider Nurse Practitioner Family
DX: E11.9 Type 2 diabetes mellitus without complications (principal)
CPT/HCPCS: 97802

== ENCOUNTER 2024-09-24 15:28 | Emergency (ER) | payer OTHER, SELFPAY ==
[2024-09-24] VITALS (15 sets, daily range): BP systolic 106–165; BP diastolic 57–106; PULSE 53–80; RESP 11–20; TEMP 36.6–36.9; O2SAT 90–99; BMI 32.5
--- NOTE | 2024-09-24 15:29 | ECG_ITS ---
APPROVED REPORT Exam: Resting ECG HR:75 bpm ECG Measurements Heart Rate [address] 155 P 21 QRSd 102 QRS 72 QT 353 T 34 QTc 381 Conclusion SINUS RHYTHM WITH SINUS ARRHYTHMIA NORMAL ECG UNCONFIRMED REPORT Electronically signed by : BRITNI COHEN, 09/26/2024 06:33:21
--- NOTE | 2024-09-24 15:47 | ED_ITS ---
Discharge Plan Disposition Patient Disposition: Home, Self-Care Condition: Fair Prescriptions Prescriptions: New nitroglycerin 0.4 mg tablet, sublingual 0.4 mg sublingual Q5M PRN (Reason: chest pain) Qty: 10 0RF Rx Instructions: do not exceed 3 doses per episode No Action duloxetine [Cymbalta] 30 mg capsule,delayed release(DR/EC) 30 mg PO DAILY duloxetine [Cymbalta] 60 mg capsule,delayed release(DR/EC) 60 mg PO DAILY bupropion HCl [Wellbutrin SR] 150 mg tablet sustained-release 12 hr 150 mg PO BID (DME) blood-glucose meter [Blood Glucose Monitoring] Kit See Rx Instructions .ROUTE .MEDSUPPLY Qty: 1 0RF Rx Instructions: BID (DME) lancets 30 gauge misc See Rx Instructions .ROUTE .MEDSUPPLY Qty: 200 2RF Rx Instructions: BID metformin 500 mg tablet See Rx Instructions .ROUTE .COMPLEX Qty: 180 2RF Dose Instruction: Take 1 tablet by mouth twice daily Rx Instructions: Take 1 tablet by mouth twice daily aspirin 81 mg tablet,delayed release (DR/EC) 81 mg PO DAILY Ozempic 0.25 mg or 0.5 mg (2 mg/3 mL) pen injector 0.25 mg SQ WEEKLY Qty: 3 2RF Rx Instructions: for 4 weeks simvastatin 10 mg tablet 10 mg PO HS Qty: 30 2RF lisinopril 5 mg tablet 5 mg PO DAILY Qty: 30 2RF (DME) OneTouch Ultra Test Strip See Rx Instructions .ROUTE .COMPLEX Qty: 150 0RF Dose Instruction: USE 1 STRIP TO CHECK GLUCOSE TWICE DAILY Rx Instructions: USE 1 STRIP TO CHECK GLUCOSE TWICE DAILY Referrals Follow up/Referrals: Bala Seaman APRN [Primary Care Provider] - See instructions Activity Restrictions/Add. Instructions Additional Instructions/Restrictions: As we discussed, your heart enzyme levels were both undetectable, your EKGs did not show evidence of a heart attack. We discussed that it was a concerning feature that you had recurrence of your chest pain that does sound like heart related pain. This does meet criteria for what is called unstable angina which is a diagnosis that typically requires admission to the hospital. I recommended admission and we discussed the risks and benefits of admission versus discharge. After shared decision making, I have prescribed nitroglycerin and we have decided to discharge you from the hospital at this time. Please follow-up with a resolution rep. Please return with any new or worsening symptoms. Clinical Impressions Clinical Impression: Angina at rest Print Language Print Language: Russian Discharge ED Provider: Drew Cain Adult HPI General Chief complaint: Chest Pain Stated complaint: Chest Pain Time Seen by Provider: 09/24/24 15:47 Mode of Arrival: Wheelchair Source of Information: Patient Limitations: No Limitations Description of Symptoms (Recalled from ER Triage Doc. by RN): pt presents to ED with c/o chest pain. pt reports pain began last night around midnight, she took 4 ASA and symtoms subsided. pt reports pain began again this morning, pt took 3 ASA but symptoms has not subsided. pt reports that pain eases up with rest, but does not go away completely. pt reports pain located in left arm, left jaw, between shoulders in back and left side of neck. pain began today around 10 am. History of Present Illness HPI narrative: Patient presents for evaluation of substernal nonexertional nonreproducible dull chest pain that is moderate in severity gradual in onset and radiating to her jaw and left arm. Symptoms began last night. Previous therapies included aspirin overnight with resolution of symptoms. Symptoms recurred this morning which prompted presentation today. No sick contacts no recent travel no leg pain or leg swelling no hemoptysis. Patient expresses concerns over history of recently increased lipids. She has not had similar symptoms before. No other known exacerbating or alleviating factors. No syncope or presyncope or palpitations. Pain is not described as tearing and was not instantaneous in onset. Please note that above description of symptoms, in this electronic medical record under categorization of recalled from ER triage doctor by RN are reflective of an initial nursing assessment, however, is not reflective of my full history and physical exam that was personally taken and clarified. Consequentially, this preceding description of symptoms, which may include the patient's categorized chief complaint in the EMR, do not reflect my personal clinical impression, and the ultimate description of history of present illness and patient stated complaints should be deferred to this section of the note. Unless stated otherwise or congruent with this section of the note, additional signs, symptoms, or incongruence should be interpreted as inaccurate with my clinical impression. Related Data Home Medications ?Medication ?Instructions ?Recorded ?Confirmed bupropion HCl 150 mg tablet,12 hr 150 mg PO BID 08/29/22 08/31/24 sustained-release (Wellbutrin SR) duloxetine 30 mg capsule,delayed 30 mg PO DAILY 08/29/22 08/31/24 release (Cymbalta) duloxetine 60 mg capsule,delayed 60 mg PO DAILY 08/29/22 08/31/24 release (Cymbalta) aspirin 81 mg tablet,delayed 81 mg PO DAILY 06/21/24 08/31/24 release Previous Rx's ?Medication ?Instructions ?Recorded blood-glucose meter (Blood Glucose #1 ea 08/29/22 Monitoring kit) lancets 30 gauge #200 ea 08/29/22 blood sugar diagnostic (OneTouch #150 ea 12/26/22 Ultra Test strips) metformin 500 mg tablet See Rx Instructions .Route 12/11/23 .COMPLEX #180 tabs lisinopril 5 mg tablet 5 mg PO DAILY #30 tabs 08/31/24 semaglutide 0.25 mg or 0.5 mg (2 0.25 mg (0.368 mL) SQ WEEKLY #3 mL 08/31/24 mg/3 mL) subcutaneous pen injector (Ozempic) simvastatin 10 mg tablet 10 mg PO HS #30 tabs 08/31/24 nitroglycerin 0.4 mg sublingual 0.4 mg sublingual Q5M PRN chest 09/24/24 tablet pain #10 tabs Allergies Allergy/AdvReac Type Severity Reaction Status Date / Time No Known Allergies Allergy Verified 08/31/24 09:59 [facility] Disclaimer: The information contained in this section may have been updated after the patient was seen, as this information can be updated by other users. Medical History Uterine fibroid < 1 cm posterior uterus Abnormal uterine bleeding Depression Endometriosis Diabetes mellitus Intra-articular loose body Surgical History History of endometrial ablation Hx of dilation and curettage H/O knee surgery Hx of cholecystectomy H/O Spinal surgery Family History Grandmother Cancer breast Social History Smoking Status: Current every day smoker alcohol intake: never substance use type: denies use current occupational status: employed Travel in the last 8 weeks: None Have you lived/traveled outside [place] in past 30 days?: No Contact w/someone who lives/traveled outside US past 30 days?: No Exposure to someone with infectious disease in past 14 days?: No Do you have a fever (greater than 100.4 F or 38 C)?: No Have you tested positive for COVID-19: No Exposed to someone with COVID-19 in past 14 days?: No Do you have a sore throat?: No Do you have a cough?: No Do you have any weakness?: No Do you have any diarrhea?: No Are you experiencing any unusual bleeding?: No Do you have any muscle aches/pain?: No Do you have any abdominal pain?: No Are you experiencing loss of taste or smell?: No Other Medical History Have you received the Pneumonia Vaccine: No ROS Obtained: Yes other As per HPI Physical Exam General General appearance: alert and in no apparent distress Head Head exam: atraumatic and normocephalic Eye Eye exam: Present normal appearance Neck Neck exam: Present normal inspection Chest Chest inspection: Present normal inspection and symmetric chest wall rise Respiratory Respiratory exam: Present normal lung sounds bilaterally; Absent respiratory distress Cardiovascular Cardiovascular exam: Present regular rate and normal rhythm Abdominal Exam Abdominal exam: Present soft Neurological Exam Neurological exam: Present alert and oriented X3 Psychiatric Psychiatric exam: Present normal affect and normal mood Skin Skin exam: Present warm and dry Medical Decision Making Medical Records Medical records reviewed: Yes I reviewed the patient's medical records. Screening: Per USPSTF and CDC recommendations, given the prevalence of disease in our region, it is our hospital?s policy to screen for HIV and viral Hepatitis for all patients aged 18 and over and those with ongoing risk factors. Devan Inquiry Pt receiving controlled substance: No Vital Signs: 09/24/24 15:29 09/24/24 15:47 09/24/24 16:00 Temperature 98.4 F Temperature Source Oral Pulse Rate 80 71 Pulse Rate [Left Radial] 80 Respiratory Rate 16 16 Blood Pressure 165/106 H Blood Pressure [Right Arm] 156/87 H Blood Pressure Mean [Right Arm] 110 02 Sat by Pulse Oximetry 98 95 Oxygen Delivery Method Room Air Room Air 09/24/24 16:31 09/24/24 17:00 09/24/24 17:26 Temperature Temperature Source Pulse Rate 60 62 68 Pulse Rate [Left Radial] Respiratory Rate 14 16 17 Blood Pressure 135/78 147/90 H 148/93 H Blood Pressure [Right Arm] Blood Pressure Mean [Right Arm] 02 Sat by Pulse Oximetry 96 93 L 93 L Oxygen Delivery Method Room Air Room Air Room Air 09/24/24 17:31 09/24/24 17:45 09/24/24 18:00 Temperature Temperature Source Pulse Rate 66 53 L 56 L Pulse Rate [Left Radial] Respiratory Rate 20 15 11 L Blood Pressure 106/57 L 115/64 116/77 Blood Pressure [Right Arm] Blood Pressure Mean [Right Arm] 02 Sat by Pulse Oximetry 90 L 94 L 94 L Oxygen Delivery Method Room Air Room Air Room Air 09/24/24 18:15 09/24/24 18:31 09/24/24 19:01 Temperature Temperature Source Pulse Rate 56 L 53 L 64 Pulse Rate [Left Radial] Respiratory Rate 14 18 13 Blood Pressure 115/63 148/81 H 144/63 H Blood Pressure [Right Arm] Blood Pressure Mean [Right Arm] 02 Sat by Pulse Oximetry 97 94 L 99 Oxygen Delivery Method Room Air Room Air 09/24/24 19:15 09/24/24 19:45 09/24/24 19:48 Temperature 98 F Temperature Source Oral Pulse Rate 58 L 70 58 L Pulse Rate [Left Radial] Respiratory Rate 11 L 13 17 Blood Pressure 150/95 H 163/106 H 158/91 H Blood Pressure [Right Arm] Blood Pressure Mean [Right Arm] 02 Sat by Pulse Oximetry 94 L 99 Oxygen Delivery Method Room Air Lab Data Lab Results 09/24/24 15:32: WBC 11.0 H, RBC 5.09, Hgb 15.4, Hct 45.3, MCV 89.0, MCH 30.3, MCHC 34.0, RDW 12.5, Plt Count 260, MPV 8.6, Neut % (Auto) 69.1, Lymph % (Auto) 24.1, [place] % (Auto) 5.7, Eos % (Auto) 0.3, Baso % (Auto) 0.4, Neut # (Auto) 7.6, Lymph # (Auto) 2.6, [place] # (Auto) 0.6, Eos # (Auto) 0.0, Baso # (Auto) 0.0, S odium 135 L, Potassium 3.6, Chloride 101, Carbon Dioxide 29, Anion Gap 8.6, BUN 18 H, Creatinine 0.90, Estimated Creat Clear 122, Estimated GFR 67, Est GFR ( Amer) 81, Glucose 109 H, Calcium 9.8, Total Bilirubin 0.4, AST 39 H, ALT 27, Alkaline Phosphatase 81, Troponin I < 0.01, Total Protein 7.7, Albumin 4.6, Globulin 3.1, Albumin/Globulin Ratio 1.5, Lipase 182, HCV Ab CYNTHIA w/Rflx PCR Qn Negative, HIV Ag/Ab Combo Qual Negative 09/24/24 18:10: Troponin I < 0.01 09/24/24 15:32 09/24/24 15:32 Orders (Tests/Meds): ED MEDICATIONS Discontinued Medications Generic Name Dose Route Start Last Admin Trade Name Freq PRN Reason Stop Dose Admin Aspirin 325 mg 09/24/24 16:12 09/24/24 17:10 Aspirin 325mg Tablet PO 09/24/24 16:13 Not Given ONCE ONE Diltiazem HCl 20 mg 09/24/24 16:01 09/24/24 16:20 Diltiazem Hcl 100 Mg Adv IV 09/24/24 16:02 Not Given ONCE ONE Lactated Ringer's 1,000 mls @ 999 mls/hr 09/24/24 15:57 09/24/24 16:20 Lactated Ringer's 1000 Ml Bag IV 09/24/24 16:57 Not Given .Q1H1M ONE Magnesium Sulfate 2 gm in 50 mls @ 50 mls/hr 09/24/24 15:57 09/24/24 16:20 Magnesium Sulfate 2gm/50ml Premix IV 09/24/24 16:56 Not Given ONCE ONE Nitroglycerin 0.4 mg 09/24/24 16:12 09/24/24 17:24 Nitroglycerin 0.4mg Sl Tablet SL 10/24/24 16:11 0.4 mg Q5MINP PRN Administration Chest Pain ORDERS Category Date Time Status XR chest portable Stat Exams 09/24/24 16:13 Completed Complete Blood Count Auto Diff Stat Lab 09/24/24 15:32 Completed Comprehensive Metabolic Panel Stat Lab 09/24/24 15:32 Completed HIV Combo Stat Lab 09/24/24 15:32 Completed Hepatitis C Ab Qual. W/ RFX Stat Lab 09/24/24 15:32 Completed Lipase Stat Lab 09/24/24 15:32 Completed Troponin I Q3H Lab 09/24/24 18:10 Completed Troponin I Stat Lab 09/24/24 15:32 Completed HEART Score History (anamnesis): Moderately suspicious ECG: Non-specific disturbance Age: 45-65 years Risk factors: 3 or more risk factors Troponin: </= normal limit HEART Score: 5 Medical Decision Narrative: Patient with history and exam per above presenting for evaluation of chest pain Diagnoses considered include ACS, GERD, peptic ulcer disease, infectious precipitant, low clinical index of suspicion at this time for pulmonary embolism or dissection, given symptoms and consistent with both these etiologies. ED workup and treatment included: ED MEDICATIONS Discontinued Medications Generic Name Dose Route Start Last Admin Trade Name Freq PRN Reason Stop Dose Admin Aspirin 325 mg 09/24/24 16:12 09/24/24 17:10 Aspirin 325mg Tablet PO 09/24/24 16:13 Not Given ONCE ONE Diltiazem HCl 20 mg 09/24/24 16:01 09/24/24 16:20 Diltiazem Hcl 100 Mg Adv IV 09/24/24 16:02 Not Given ONCE ONE Lactated Ringer's 1,000 mls @ 999 mls/hr 09/24/24 15:57 09/24/24 16:20 Lactated Ringer's 1000 Ml Bag IV 09/24/24 16:57 Not Given .Q1H1M ONE Magnesium Sulfate 2 gm in 50 mls @ 50 mls/hr 09/24/24 15:57 09/24/24 16:20 Magnesium Sulfate 2gm/50ml Premix IV 09/24/24 16:56 Not Given ONCE ONE Nitroglycerin 0.4 mg 09/24/24 16:12 09/24/24 17:24 Nitroglycerin 0.4mg Sl Tablet SL 10/24/24 16:11 0.4 mg Q5MINP PRN Administration Chest Pain ORDERS Category Date Time Status XR chest portable Stat Exams 09/24/24 16:13 Completed Complete Blood Count Auto Diff Stat Lab 09/24/24 15:32 Completed Comprehensive Metabolic Panel Stat Lab 09/24/24 15:32 Completed HIV Combo Stat Lab 09/24/24 15:32 Completed Hepatitis C Ab Qual. W/ RFX Stat Lab 09/24/24 15:32 Completed Lipase Stat Lab 09/24/24 15:32 Completed Troponin I Q3H Lab 09/24/24 18:10 Completed Troponin I Stat Lab 09/24/24 15:32 Completed Labs were independently interpreted by me, significant for leukocytosis, troponins within normal limits x 2 Imaging was independently visualized and interpreted by me, significant for no acute findings Please refer to radiology report for full details. At this time, symptoms are most consistent with unstable angina. Patient was given nitroglycerin with complete resolution of symptoms however symptoms recurred again during ED stay and resolved again after administration of additional nitroglycerin tab. I discussed my clinical impression with the patient including concern for unstable angina at this time and recommended admission to the hospital. I discussed risks associated with this diagnosis include disability and . She was able to express in her own words and understanding of my clinical impression and my recommendations including the information and risks that go alongside both of those. At this time, after discussion, extensive in nature, and shared decision making as the results of that discussion, patient elects to be discharged at this time with strict return cautions and outpatient follow-up. She was encouraged to return to the emergency department with an extremely low threshold or should she change her mind about being admitted to the hospital. She was counseled on specific signs and symptoms that would be particularly concerning and prompt immediate evaluation. Critical Care Critical Care Time Critical Care Time: No
[2024-09-24 16:00] LABS: Basophils % 0.4 % (0.1-2.0); Eosinophils % 0.3 % (0.1-12.0); Hematocrit 45.3 % (37.0-47.0); Hemoglobin 15.4 g/dL (12.2-16.2); Lymphocytes # 2.6 K/mm3 (0.7-4.5); Lymphocytes % 24.1 % (10-50); Mean Corpuscular Hemoglobin 30.3 pg (27.0-31.2); Mean Platelet Volume 8.6 fl (7.4-10.4); Monocytes # 0.6 K/mm3 (0.1-1.0); Monocytes % 5.7 % (1.7-9.3); Neutrophils # 7.6 K/mm3 (1.8-7.8); Neutrophils % 69.1 % (37.0-80.0); Platelet Count 260 K/mm3 (142-424); Red Blood Count 5.09 M/mm3 (4.20-5.40); Red Cell Distribution Width 12.5 % (11.5-17.5)
[2024-09-24 16:02] LABS: Chloride 101 mmol/L (98-107)
[2024-09-24 16:03] LABS: Albumin Level 4.6 g/dl (3.5-5.0); Potassium 3.6 mmoL/L (3.5-5.1); Sodium 135 mmol/L (136-145)
[2024-09-24 16:05] LABS: Blood Urea Nitrogen 18 mg/dl (7-17); Creatinine Clearance Estimated 122 mL/min (50-200); Estimated Glomerular Filt Rate 67 ml/min (>60); GFR (African American) 81 ML/MIN (>60)
[2024-09-24 16:06] LABS: Alanine Aminotransferase 27 U/L (12-78); Albumin/Globulin Ratio 1.5 (1.1-1.8); Alkaline Phosphatase 81 U/L (38-126); Anion Gap 8.6 mEq/L (5-15); Aspartate Amino Transferase 39 U/L (14-36); Bilirubin,Total 0.4 mg/dl (0.2-1.3); Calcium 9.8 mg/dl (8.4-10.2); Carbon Dioxide 29 mmol/L (22.0-30.0); Globulin 3.1 g/dL (1.3-3.2); Glucose 109 mg/dl (74-100); Total Protein,Serum 7.7 g/dl (6.3-8.2)
--- NOTE | 2024-09-24 16:13 | XR_ITS ---
PROCEDURE INFORMATION: Exam: XR Chest Exam date and time: 09/24/2024 4:25 PM Age: 49 years old Clinical indication: Chest wall pain; Additional info: Substernal chest pain TECHNIQUE: Imaging protocol: Radiologic exam of the chest. Views: 1 view. COMPARISON: CR XR CHEST 2V 08/22/2022 2:24 PM FINDINGS: Lungs: Unremarkable. No consolidation. Pleural spaces: Unremarkable. No pleural effusion. No pneumothorax. Heart/Mediastinum: Unremarkable. No cardiomegaly. Bones/joints: No acute bony abnormalities detected. IMPRESSION: Negative chest exam.
[2024-09-24 16:34] LABS: Troponin I < 0.01 ng/ml (0.00-0.034)
[2024-09-24 17:00] LABS: Lipase 182 U/L (23-300)
[2024-09-24 17:03] LABS: HIV Combo NEGATIVE (Negative)
[2024-09-24 17:11] LABS: Hepatitis C Ab Qual. W/ RFX NEGATIVE (Negative)
[2024-09-24] MEDS: NITROGLYCERIN 0.4MG SL TABLET 0.4 MG SL (17:24)
[2024-09-24 18:47] LABS: Troponin I < 0.01 ng/ml (0.00-0.034)
--- NOTE | 2024-09-24 18:52 | ECG_ITS ---
APPROVED REPORT Exam: Resting ECG HR:61 bpm ECG Measurements Heart Rate 61 AXES CA 149 P 28 QRSd 113 QRS 78 QT 409 T 46 QTc 413 Conclusion SINUS RHYTHM MODERATE INTRAVENTRICULAR CONDUCTION DELAY [110+ ms QRS DURATION] BORDERLINE ECG UNCONFIRMED REPORT Electronically signed by : BRITNI COHEN, 09/26/2024 06:34:19
== END 2024-09-24 20:01 | disposition home or self-care (01) ==
PROVIDERS: Emergency Provider Emergency Medicine; PCP Nurse Practitioner Family
DX: I20.89 Other forms of angina pectoris (principal); R07.9 Chest pain, unspecified; Z72.0 Tobacco use
CPT/HCPCS: 71045; 80053; 83690; 84484; 85025; 86803; 87389; 93005; 99284

== ENCOUNTER 2024-10-13 10:46 | Day surgery (SDC) | payer OTHER, SELFPAY ==
[2024-10-13] VITALS (8 sets, daily range): BP systolic 93–130; BP diastolic 45–87; PULSE 55–65; RESP 16–20; TEMP 36.9; O2SAT 93–98; BMI 34.1
--- NOTE | 2024-10-13 07:11 | IR_ITS ---
APPROVED REPORT Patient Location: Outpatient PROCEDURES Left heart catheterization Left ventriculogram Selective coronary angiogram INDICATION Progressive and recalcitrant angina pectoris Informed consent was obtained prior to the procedure. COMPLICATIONS none Estimated Blood Loss: less than 10ml TECHNIQUE One percent lidocaine used to anesthetize the right anterior aspect of the wrist. The right radial artery was accessed via the Seldinger technique. A 6 [place] sheath was placed in the right radial artery. 2.5 mg of Verapamil, 800 mcg of nitroglycerin, 1mg Lidocaine and 5000 U Heparin were given through the arterial sheath. The papa catheter was also used to perform left heart catheterization, left ventriculogram and selective coronary angiogram. At the end of the procedure the sheath was removed good hemostasis was achieved using Traclet band, patient was transferred to the postop holding area in stable condition. ANGIOGRAPHIC RESULTS The left main artery Normal The left anterior descending artery Has mild proximal and mid vessel 10% luminal regularities The circumflex artery Normal The right coronary artery Large and dominant and has proximal and mid vessel diffuse 20 and 30% stenoses The CHENG ventriculogram reveals Normal 65% The left ventricular end-diastolic pressure 15 mmHg IMPRESSION Nonocclusive coronary artery disease as described above Normal ejection fraction Borderline LVEDP PLAN 1. Risk factor modification and medical management 2. Evaluation of noncardiac symptoms 3. It is possible patient is experiencing microvascular ischemia. It still may be reasonable to continue with antianginals in the event this is microvascular Electronically signed by : Delroy Alexandra MD 10/13/2024 13:13:06
--- NOTE | 2024-10-13 10:49 | CA_ITS ---
APPROVED REPORT EXAM: Comprehensive 2D, Doppler, and color-flow Echocardiogram Archery Instructor: Lacie Brown RVT Ht: 5 ft 9 in Wt: 231lbs BSA: 2.20 BP: 138/86 mmHg Indications: ANGINA,SMOKER,OCHOA,DM,HLD 2D Dimensions LA Volume 49.00 mL LA Volume Index 22.27 mL/m2 (M/F) 16-34 M-Mode Dimensions RVDd 3.56 cm (0.9-2.6) LA Diam 3.73 cm (1.9-4.0) LVDd 5.04 cm (3.5-5.7) LVDs 3.52 cm (3.5-5.7) IVSd 1.31 cm (0.6-1.1) PWd 0.93 cm (0.6-1.1) EF (Teich) 57.20% FS 30.20% EDV (Teich) 120.50 mL TAPSE 1.87 (<1.7) ESV (Teich) 51.60 mL LV Diastology E Decel Time 227 (160-240 msec) E/A Ratio 1.1 Aortic Valve BRIGIDO Index 1.80 cm2/m2 AoV Peak Santi. 125.0 (50-130 cm/s) AO Peak GR. 6.20 mmHg AO Mean GR. 3.50 (<5 mmHg) AO VTI 29.6 (18-25 cm) BRIGIDO (VTI) 4.05 (2.5-4.5 cm2) Mitral Valve MV E Max Santi. 80.0 (40-130 cm/s) MV A Velocity 71.0 (40-130 cm/s) E/A Ratio 1.13 MV PHT 66.0 ms Pulmonary Valve PV Peak Velocity 89.0 (50-150 cm/s) Left Ventricle The left ventricle is normal size. The left ventricular systolic function is normal. The left ventricular ejection fraction is within the normal range. There is normal left ventricular wall thickness. There is normal LV segmental wall motion. The left ventricular diastolic function is normal. LVEF is 55%. Right Ventricle The right ventricle is borderline size. The right ventricular systolic function is normal. Atria The left atrium size is normal. The right atrium size is normal. There is no Doppler evidence of interatrial shunt. Aortic Valve Aortic valve opens well. There is no aortic valvular stenosis. No aortic regurgitation is present. Mitral Valve The mitral valve is normal in structure. No evidence of mitral valve stenosis. There is no mitral valve regurgitation noted. Tricuspid Valve Tricuspid valve is grossly normal in structure and function. Trace tricuspid regurgitation. There is insufficient TR jet to estimate RVSP. Pulmonic Valve The pulmonary valve is normal in structure. Trace pulmonic regurgitation. Great Vessels The aortic root is normal in size. The ascending aorta is not well-visualized. IVC is normal in size and collapses >50% with inspiration. Pericardium There is no pericardial effusion. Other Information Study Quality: Fair Conclusion Normal LV systolic function. Borderline RV dilation with normal RV function. No significant valvular stenosis or regurgitation. Electronically signed by : Diana Loza MD 10/17/2024 23:15:48
[2024-10-13 11:50] LABS: Basophils % 0.4 % (0.1-2.0); Eosinophils % 0.3 % (0.1-12.0); Hematocrit 41.9 % (37.0-47.0); Hemoglobin 14.1 g/dL (12.2-16.2); Lymphocytes # 2.6 K/mm3 (0.7-4.5); Lymphocytes % 24.3 % (10-50); Mean Corpuscular HGB Conc 33.7 g/dL (31.8-35.4); Mean Corpuscular Hemoglobin 30.3 pg (27.0-31.2); Mean Corpuscular Volume 90.1 fl (81-99); Mean Platelet Volume 8.4 fl (7.4-10.4); Monocytes # 0.7 K/mm3 (0.1-1.0); Monocytes % 6.2 % (1.7-9.3); Neutrophils # 7.3 K/mm3 (1.8-7.8); Neutrophils % 68.3 % (37.0-80.0); Platelet Count 262 K/mm3 (142-424); Red Blood Count 4.65 M/mm3 (4.20-5.40); Red Cell Distribution Width 13.3 % (11.5-17.5); White Blood Count 10.7 K/mm3 (4.8-10.8)
[2024-10-13 12:09] LABS: Blood Urea Nitrogen 20 mg/dl (7-17); Calcium 9.8 mg/dl (8.4-10.2); Carbon Dioxide 25 mmol/L (22.0-30.0); Chloride 106 mmol/L (98-107); Creatinine Clearance Estimated 144 mL/min (50-200); Estimated Glomerular Filt Rate 77 ml/min (>60); GFR (African American) 93 ML/MIN (>60); Glucose 98 mg/dl (74-100); Sodium 139 mmol/L (136-145)
[2024-10-13 12:10] LABS: HCG Qualitative, Serum Negative (Negative)
[2024-10-13] MEDS: HEPARIN 1,000 UNITS/500ML NS (CATH LAB) 3000 UNIT IV (12:19)
[2024-10-13] MEDS: diphenhydrAMINE 50MG/ML VIAL 50 MG IV (12:20)
[2024-10-13] MEDS: HEPARIN 1,000 UNITS/ML 10ML VIAL (CATH LAB) 10000 UNIT IV (12:20)
[2024-10-13] MEDS: VERAPAMIL 2.5MG/ML 2ML VIAL 2.5 MG IV (12:20)
[2024-10-13] MEDS: LIDOCAINE 1% 10ML MDV 20 ML IJ (12:20)
[2024-10-13] MEDS: NITROGLYCERIN 800MCG/8ML SYR (CATH LAB) 800 MCG IA (12:20)
[2024-10-13] MEDS: 0.9 % SODIUM CHLORIDE 500 ML 25 ML IV (12:21)
[2024-10-13] MEDS: FENTANYL 100MCG/2ML VIAL 50 MCG IV (12:40)
[2024-10-13] MEDS: MIDAZOLAM HCL 1MG/ML 5ML VIAL 1 MG IV (12:40)
[2024-10-13] MEDS: MIDAZOLAM 2MG/2ML VIAL 1 MG IV (12:44)
[2024-10-13] MEDS: IOPAMIDOL-370 (76%);100ML BOTTLE 70 ML IV (14:06)
== END 2024-10-13 15:00 | disposition home or self-care (01) ==
PROVIDERS: PCP Nurse Practitioner Family; Visit Provider Internal Medicine
DX: I25.118 Atherosclerotic heart disease of native coronary artery with other forms of angina pectoris (principal); F17.210 Nicotine dependence, cigarettes, uncomplicated; R07.89 Other chest pain; E78.49 Other hyperlipidemia; G47.33 Obstructive sleep apnea (adult) (pediatric); E11.9 Type 2 diabetes mellitus without complications; Z79.84 Long term (current) use of oral hypoglycemic drugs; Z79.85 Long-term (current) use of injectable non-insulin antidiabetic drugs; Z79.899 Other long term (current) drug therapy
CPT/HCPCS: 80048; 84703; 85025; 93306; 93458; 99152; C1725; C1769; J1200; J1644; J2250; J3010; Q9967

== ENCOUNTER 2024-10-28 07:14 | Outpatient (CLI) | payer OTHER, SELFPAY ==
--- NOTE | 2024-10-28 07:27 | CA_ITS ---
FINAL REPORT TECHNIQUE: Spectral and color Doppler exam CLINICAL HISTORY: HTN,DM,SMOKER COMPARISON: None FINDINGS: DOPPLER RENAL VESSELS HISTORY: Hypertension . FINDINGS: Intrarenal resistive indices on the right are 0.48-0.66, normal . Intrarenal resistive indices on the left are 0.55-0.61, normal . Renal size is normal and symmetric. Right main renal artery systolic velocity: 197 cm/sec. Aortic-right renal artery flow velocity ratio: 1.3 COMMENT: No evidence of hemodynamically significant renal artery stenosis . Left main renal artery systolic velocity: 298 cm/sec. Aortic-left renal artery flow velocity ratio: 1.9 COMMENT: No evidence of hemodynamically significant renal artery stenosis . IMPRESSION: No evidence of hemodynamically significant renal artery stenosis CTA or gadolinium-enhanced MR may be considered as a more sensitive exam. Alternatively noncontrast MRI may be considered for assessing main renal arteries for stenosis as a more sensitive exam if the patient has renal insufficiency. Reviewed, Interpreted and Dictated by Susie Castillo MD Transcribed by Nicolasa John Authenticated and [facility]
[2024-10-28 07:37] LABS: Basophils # 0.1 K/mm3 (0-0.2); Basophils % 0.5 % (0.1-2.0); Eosinophils # 0.2 K/mm3 (0.0-0.4); Eosinophils % 2.1 % (0.1-12.0); Hematocrit 42.9 % (37.0-47.0); Hemoglobin 14.8 g/dL (12.2-16.2); Lymphocytes # 1.8 K/mm3 (0.7-4.5); Lymphocytes % 17.7 % (10-50); Mean Corpuscular HGB Conc 34.5 g/dL (31.8-35.4); Mean Corpuscular Hemoglobin 30.4 pg (27.0-31.2); Mean Corpuscular Volume 88.1 fl (81-99); Mean Platelet Volume 8.6 fl (7.4-10.4); Monocytes # 0.6 K/mm3 (0.1-1.0); Monocytes % 5.8 % (1.7-9.3); Neutrophils # 7.3 K/mm3 (1.8-7.8); Neutrophils % 73.3 % (37.0-80.0); Platelet Count 220 K/mm3 (142-424); Red Blood Count 4.87 M/mm3 (4.20-5.40); Red Cell Distribution Width 13.2 % (11.5-17.5); White Blood Count 9.9 K/mm3 (4.8-10.8)
--- NOTE | 2024-10-28 08:11 | US_ITS ---
FINAL REPORT TECHNIQUE: Ultrasound images of the kidneys and bladder were obtained. CLINICAL HISTORY: I25.118 - Atherosclerotic heart disease of nenana coronar... FINDINGS: The right kidney measures 12.2 cm in length. It is normal in echogenicity. There is no hydronephrosis. The left kidney measures 13.5 cm in length. It is normal in echogenicity. There is no hydronephrosis. The urinary bladder is unremarkable. IMPRESSION: No hydronephrosis. Reviewed, Interpreted and Dictated by Susie Castillo MD Transcribed by Nicolasa John Authenticated and [facility]
[2024-10-28 08:21] LABS: Erythrocyte Sedimentation Rate 31 mm/hr (0-20)
[2024-10-28 08:24] LABS: Alanine Aminotransferase 26 U/L (12-78); Albumin Level 4.2 g/dl (3.5-5.0); Alkaline Phosphatase 86 U/L (38-126); Anion Gap 13.4 mEq/L (5-15); Aspartate Amino Transferase 27 U/L (14-36); Bilirubin,Direct 0.3 mg/dl (0.0-0.4); Bilirubin,Indirect 0.3 mg/dL (0.0-0.9); Bilirubin,Total 0.6 mg/dl (0.2-1.3); Bilirubin,Unconjugated 0.3 mg/dL (0.0-1.1); Blood Urea Nitrogen 17 mg/dl (7-17); Calcium 9.6 mg/dl (8.4-10.2); Carbon Dioxide 27 mmol/L (22.0-30.0); Chloride 103 mmol/L (98-107); Chol/HDL Ratio 6.4 (1-3.5); Cholesterol 237 mg/dl (140-200); Estimated Glomerular Filt Rate 67 ml/min (>60); GFR (African American) 81 ML/MIN (>60); Glucose 142 mg/dl (74-100); HDL Cholesterol 37 mg/dl (40-60); Magnesium 2.3 mg/dl (1.6-2.3); Potassium 4.4 mmoL/L (3.5-5.1); Sodium 139 mmol/L (136-145); Total Protein,Serum 6.7 g/dl (6.3-8.2); Triglycerides 260 mg/dl (30-150); VLDL Cholesterol 52 mg/dL (0-40)
[2024-10-28 08:40] LABS: Free T4 (Free Thyroxine) 0.97 ng/dl (0.78-2.19)
[2024-10-28 08:52] LABS: Thyroid Stimulating Hormone 2.53 uIU/mL (0.465-4.68)
[2024-10-29 10:11] LABS: Anti-Centromere B Antibodies <0.2 AI (0.0-0.9); Anti-DNA (DS) Ab Qn 1 IU/mL (0-9); Anti-Jo-1 <0.2 AI (0.0-0.9); Anti-Smith Antibody <0.2 AI (0.0-0.9); Antichromatin Antibodies <0.2 AI (0.0-0.9); Antiscleroderma-70 Antibodies <0.2 AI (0.0-0.9); RNP Antibodies 0.4 AI (0.0-0.9); Sjogren's Anti-SS-A 0.4 AI (0.0-0.9)
[2024-11-02 13:14] LABS: Anti-Ro (SS-A) Ab (RDL) 0.4
[2024-11-02 14:38] LABS: Metanephrine Plasma < 25.0 pg/mL (0.0-88.0); Normetanephrine Plasma 48.1 pg/mL (0.0-218.9)
[2024-11-09 14:27] LABS: Dopamine, Plasma < 30 pg/mL (0-48); Epinephrine, Plasma < 15 pg/mL (0-62); Norepinephrine, Plasma 408 pg/mL (0-874)
== END 2024-10-28 23:59 | disposition home or self-care (01) ==
LOC: RT 07:15
PROVIDERS: PCP Nurse Practitioner Family; Visit Provider Physician Assistant
DX: I10 Essential (primary) hypertension (principal); I25.118 Atherosclerotic heart disease of native coronary artery with other forms of angina pectoris; R06.09 Other forms of dyspnea; E78.49 Other hyperlipidemia; E11.9 Type 2 diabetes mellitus without complications; G47.33 Obstructive sleep apnea (adult) (pediatric); Z86.79 Personal history of other diseases of the circulatory system; H04.123 Dry eye syndrome of bilateral lacrimal glands; E66.9 Obesity, unspecified; Z68.33 Body mass index [BMI] 33.0-33.9, adult; Z72.0 Tobacco use
CPT/HCPCS: 36415; 76770; 80048; 80061; 80076; 82088; 82384; 83735; 83835; 84439; 84443; 85025; 85651; 86140; 86225; 86235; 93976

== ENCOUNTER 2024-10-29 10:12 | Outpatient (CLI) | payer OTHER, SELFPAY | END 2024-10-29 23:59 | disposition home or self-care (01) | LOC: LAB 10:13 | PROVIDERS: PCP Nurse Practitioner Family; Visit Provider Physician Assistant | DX: I25.10 Atherosclerotic heart disease of native coronary artery without angina pectoris (principal); E78.5 Hyperlipidemia, unspecified; E11.9 Type 2 diabetes mellitus without complications; G47.33 Obstructive sleep apnea (adult) (pediatric); E66.9 Obesity, unspecified; I10 Essential (primary) hypertension | CPT/HCPCS: 82384; 83835; 84585 ==

== ENCOUNTER 2024-11-15 21:23 | Emergency (ER) | payer OTHER, SELFPAY ==
--- NOTE | 2024-11-15 21:20 | ECG_ITS ---
APPROVED REPORT Exam: Resting ECG HR:72 bpm ECG Measurements Heart Rate 72 AXES [place] 158 P 79 QRSd 102 QRS 81 QT 360 T 71 QTc 384 Conclusion SINUS RHYTHM NORMAL ECG INTERPRETATION BASED ON A DEFAULT AGE OF 42 YEARS UNCONFIRMED REPORT Electronically signed by : BRITNI COHEN, 11/15/2024 23:04:27
[2024-11-15 21:24] VITALS: BP 163/95; PULSE 77; RESP 22; TEMP 37.3; O2SAT 99; BMI 33.2
[2024-11-15 21:27] VITALS: BMI 33.2
[2024-11-15] MEDS: ASPIRIN 81MG CHEWABLE TABLET 324 MG PO (21:33)
--- NOTE | 2024-11-15 21:34 | CT_ITS ---
PROCEDURE INFORMATION: Exam: CTA Chest With Contrast Exam date and time: 11/15/2024 11:00 PM Age: 49 years old Clinical indication: Pain; Chest pressure; Additional info: Chest/epigastric pain TECHNIQUE: Imaging protocol: Computed tomographic angiography of the chest with contrast. Exam focused on the arteries. 3D rendering (Not supervised by radiologist): MIP and/or 3D reconstructed images were created by the technologist. Radiation optimization: All CT scans at this facility use at least one of these dose optimization techniques: automated exposure control; mA and/or kV adjustment per patient size (includes targeted exams where dose is matched to clinical indication); or iterative reconstruction. Contrast material: ISOVUE; Contrast volume: 70 ml; Contrast route: INTRAVENOUS (IV); COMPARISON: CT ANGIO CHEST PE PROTOCOL 11/15/2024 11:00 PM FINDINGS: Pulmonary arteries: No pulmonary emboli. Aorta: Unremarkable. No aortic aneurysm. No aortic dissection. Lungs: Scattered peripheral nodules in right lung measuring up to 0.6 cm in right lower lobe (series 5, image 70). Tiny probable intra fissural lymph nodes in right minor and major fissures (series 5, image 70). Least one peripheral nodule in left lower lobe measuring 0.5 cm (series 5, image 75). Benign calcified nodule in right lower lobe. Pleural spaces: No effusion. No pneumothorax. Heart: Unremarkable. No cardiomegaly. No pericardial effusion. Lymph nodes: Unremarkable. No enlarged lymph nodes. Bones/joints: Unremarkable. No acute fracture. Soft tissues: Unremarkable. IMPRESSION: 1. No central or segmental pulmonary arterial embolism identified. 2. Pulmonary nodules. Fleischner society recommendations for pulmonary nodule follow-up: Multiple solid nodules <6 mm (<100 mm3) low-risk patients: no routine follow-up required high-risk patients: optional CT at 12 months
--- NOTE | 2024-11-15 21:34 | CT_ITS ---
PROCEDURE INFORMATION: Exam: CT Abdomen And Pelvis With Contrast Exam date and time: 11/15/2024 11:00 PM Age: 49 years old Clinical indication: Abdominal pain; Additional info: Chest/epigastric pain TECHNIQUE: Imaging protocol: Computed tomography of the abdomen and pelvis with contrast. 3D rendering (Not supervised by radiologist): MIP and/or 3D reconstructed images were created by the technologist. Radiation optimization: All CT scans at this facility use at least one of these dose optimization techniques: automated exposure control; mA and/or kV adjustment per patient size (includes targeted exams where dose is matched to clinical indication); or iterative reconstruction. Contrast material: ISOVUE; Contrast volume: 70 ml; Contrast route: IV; COMPARISON: US KIDNEY 10/28/2024 8:27 AM FINDINGS: Liver: Mild fatty liver infiltration. No mass. Gallbladder and biliary ducts: Surgically absent gallbladder. Pancreas: Normal. No ductal dilation. Spleen: Normal. No splenomegaly. Adrenal glands: Normal. No mass. Kidneys and ureters: Normal. No hydronephrosis. Stomach and bowel: Scattered colonic diverticula without pericolonic fat stranding. Appendix: No evidence of appendicitis. Intraperitoneal space: Unremarkable. No free air. No significant fluid collection. Vasculature: Unremarkable. No abdominal aortic aneurysm. Lymph nodes: Reactive retroperitoneal/mesenteric shotty lymph nodes without lymphadenopathy. Urinary bladder: Unremarkable as visualized. Reproductive: Unremarkable as visualized. Bones/joints: Postsurgical changes with ORIF of L4 and L5 levels. L4/5 bony fusion. No acute osseous findings. Soft tissues: Unremarkable. IMPRESSION: 1. No acute findings identified. 2. Mild fatty liver infiltration. 3. Colonic diverticulosis.
--- NOTE | 2024-11-15 21:43 | [facility].EDCP ---
Discharge Plan Disposition Patient Disposition: Home, Self-Care Prescriptions Prescriptions: No Action Ozempic 0.25 mg or 0.5 mg (2 mg/3 mL) pen injector 0.5 mg SQ WEEKLY Qty: 3 2RF Rx Instructions: for 4 weeks Please fill today lisinopril 20 mg tablet 20 mg PO DAILY Qty: 30 2RF ranolazine 500 mg tablet extended release 12 hr 500 mg PO BID Qty: 60 2RF duloxetine [Cymbalta] 30 mg capsule,delayed release(DR/EC) 30 mg PO DAILY duloxetine [Cymbalta] 60 mg capsule,delayed release(DR/EC) 60 mg PO DAILY bupropion HCl [Wellbutrin SR] 150 mg tablet sustained-release 12 hr 150 mg PO BID (DME) blood-glucose meter [Blood Glucose Monitoring] Kit See Rx Instructions .ROUTE .MEDSUPPLY Qty: 1 0RF Rx Instructions: BID (DME) lancets 30 gauge misc See Rx Instructions .ROUTE .MEDSUPPLY Qty: 200 2RF Rx Instructions: BID metformin 500 mg tablet See Rx Instructions .ROUTE .COMPLEX Qty: 180 2RF Dose Instruction: Take 1 tablet by mouth twice daily Rx Instructions: Take 1 tablet by mouth twice daily aspirin 81 mg tablet,delayed release (DR/EC) 81 mg PO DAILY simvastatin 10 mg tablet 10 mg PO HS Qty: 30 2RF metoprolol succinate [Toprol XL] 25 mg tablet extended release 24 hr 25 mg PO DAILY Qty: 30 5RF (DME) OneTouch Ultra Test Strip See Rx Instructions .ROUTE .COMPLEX Qty: 150 0RF Dose Instruction: USE 1 STRIP TO CHECK GLUCOSE TWICE DAILY Rx Instructions: USE 1 STRIP TO CHECK GLUCOSE TWICE DAILY nitroglycerin 0.4 mg tablet, sublingual 0.4 mg sublingual Q5M PRN (Reason: chest pain) Qty: 10 0RF Rx Instructions: do not exceed 3 doses per episode Referrals Follow up/Referrals: Provider,Referral, MD [Referring] - See instructions Activity Restrictions/Add. Instructions Additional Instructions/Restrictions: Please follow-up with your primary care provider and consider follow-up with GI/general surgery for upper endoscopy and colonoscopy. Please return to the emergency department if you develop any new or worsening symptoms or become concerned for your health. Clinical Impressions Clinical Impression: Chest pain, Abdominal pain, Mesenteric lymphadenopathy Print Language Print Language: Estonian Discharge ED Provider: Charisma Benitez HPI <Charisma Benitez DO - Last Filed: 11/16/24 00:06> General Chief Complaint: Chest Pain Stated Complaint: chest pain Time Seen by Provider: 11/15/24 21:26 Mode of Arrival: Ambulatory Source of Information: Patient Description of Symptoms (Recalled from ER Triage Doc. by RN): Pt to ED with c/o 06/24 midsternal chest pain that radiates to her shoulder blades that started @1500 today. Pt took 2 nitro at that time, which aleviated her pain. Pt reports the pain returned @2030 tonight, which prompted her to come to ED. Pt has not taken nitro tonight. Pt states she had a heart cath 2 weeks ago, and had a 10% blockage. Pt did not have any stents placed. History of Present Illness HPI narrative: This patient is a 49-year-old female with a history of nonocclusive CAD (recent cath 10/13/24), ANTHONY, tobacco abuse, hypertension, hyperlipidemia, diabetes presenting to the emergency department for evaluation with concern for chest and epigastric pain. Patient notes that symptoms been going on for over a month now. Patient has been seen multiple times by cardiology and has had echo and heart cath. She was found to have nonocclusive CAD. She notes that despite being told that everything was okay with her heart, she continues to have these intermittent pains. She notes that it feels like a sharp spasming/stabbing pain like she is having aching up under her left breast. She states that it goes into her back. She denies any fevers, chills, nausea, vomiting, changes in bowel movements, rashes, or swelling. She does note that it gets worse if she tries to eat or with exertion. I did note on medical record review she started Ozempic right before all the symptoms started. She does note that this is all new since starting that. Related Data Home Medications ?Medication ?Instructions ?Recorded ?Confirmed bupropion HCl 150 mg tablet,12 hr 150 mg PO BID 08/29/22 10/21/24 sustained-release (Wellbutrin SR) duloxetine 30 mg capsule,delayed 30 mg PO DAILY 08/29/22 10/21/24 release (Cymbalta) duloxetine 60 mg capsule,delayed 60 mg PO DAILY 08/29/22 10/21/24 release (Cymbalta) aspirin 81 mg tablet,delayed 81 mg PO DAILY 06/21/24 10/21/24 release Previous Rx's ?Medication ?Instructions ?Recorded blood-glucose meter (Blood Glucose #1 ea 08/29/22 Monitoring kit) lancets 30 gauge #200 ea 08/29/22 blood sugar diagnostic (OneTouch #150 ea 12/26/22 Ultra Test strips) metformin 500 mg tablet See Rx Instructions .Route 12/11/23 .COMPLEX #180 tabs simvastatin 10 mg tablet 10 mg PO HS #30 tabs 08/31/24 nitroglycerin 0.4 mg sublingual 0.4 mg sublingual Q5M PRN chest 09/24/24 tablet pain #10 tabs metoprolol succinate 25 mg 25 mg PO DAILY #30 tabs 10/12/24 tablet,extended release 24 hr (Toprol XL) semaglutide 0.25 mg or 0.5 mg (2 0.5 mg (0.736 mL) SQ WEEKLY #3 mL 10/12/24 mg/3 mL) subcutaneous pen injector (Ozempic) lisinopril 20 mg tablet 20 mg PO DAILY #30 tabs 10/21/24 ranolazine 500 mg tablet,extended 500 mg PO BID #60 tabs 10/21/24 release,12 hr Allergies Allergy/AdvReac Type Severity Reaction Status Date / Time No Known Allergies Allergy Verified 10/21/24 11:08 [facility] <Charisma Benitez DO - Last Filed: 11/16/24 00:06> [facility] Disclaimer: The information contained in this section may have been updated after the patient was seen, as this information can be updated by other users. Medical History Uterine fibroid Abnormal uterine bleeding Depression Endometriosis Diabetes mellitus Intra-articular loose body Surgical History History of endometrial ablation Hx of dilation and curettage H/O knee surgery Hx of cholecystectomy H/O Spinal surgery Family History Grandmother Cancer Social History Smoking Status: Current every day smoker alcohol intake: never substance use type: denies use current occupational status: employed Travel in the last 8 weeks: None Have you lived/traveled outside [place] in past 30 days?: No Contact w/someone who lives/traveled outside [place] past 30 days?: No Exposure to someone with infectious disease in past 14 days?: No Do you have a fever (greater than 100.4 F or 38 C)?: No Have you tested positive for COVID-19: No Exposed to someone with COVID-19 in past 14 days?: No Do you have a sore throat?: No Do you have a cough?: No Do you have any weakness?: No Do you have any diarrhea?: No Are you experiencing any unusual bleeding?: No Do you have any muscle aches/pain?: No Do you have any abdominal pain?: No Are you experiencing loss of taste or smell?: No Other Medical History Have you received the Pneumonia Vaccine: No <Charisma Benitez DO - Last Filed: 11/16/24 00:06> ROS Obtained: Yes All systems reviewed & no additional complaints except as documented Physical Exam <Charisma Benitez DO - Last Filed: 11/16/24 00:06> General General appearance: alert and in no apparent distress Comment: Uncomfortable appearing Head Head exam: atraumatic and normocephalic Eye Eye exam: Present normal appearance, PERRL and EOMI ENT ENT exam: Present normal exam, normal oropharynx, mucous membranes moist and normal external ear exam Neck Neck exam: Present normal inspection, full ROM and trachea midline; Absent tenderness Chest Chest inspection: Present normal inspection and symmetric chest wall rise; Absent tenderness Respiratory Respiratory exam: Present normal lung sounds bilaterally; Absent respiratory distress, wheezes, stridor or accessory muscle use Cardiovascular Cardiovascular exam: Present regular rate and normal rhythm Abdominal Exam Abdominal exam: Present soft and tenderness (Epigastric); Absent distention, guarding, rebound or rigidity Extremities Exam Extremities exam: Present normal inspection, full ROM and normal capillary refill; Absent tenderness or edema Back Exam Back exam: Present normal inspection and full ROM; Absent tenderness Neurological Exam Neurological exam: Present alert, oriented X3, CN II-XII intact and normal gait; Absent motor sensory deficit Psychiatric Psychiatric exam: Present normal affect and normal mood Skin Skin exam: Present warm and dry HEART Score <Charisma Benitez DO - Last Filed: 11/16/24 00:06> HEART Score HEART Score assessment performed?: Yes History (anamnesis): Slightly suspicious ECG: Normal Age: 45-65 years Risk factors: Atherosclerosis history Troponin: </= normal limit HEART Score: 3 <Devan Hill MD - Last Filed: 11/16/24 01:21> HEART Score HEART Score: 3 Critical Care <Charisma Benitez DO - Last Filed: 11/16/24 00:06> Critical Care Time Critical Care Time: No Medical Decision Making <Charisma Benitez DO - Last Filed: 11/16/24 00:06> Devan Inquiry Pt receiving controlled substance: No Vital Signs Vital Signs: 11/15/24 21:24 11/15/24 22:03 Temperature 99.2 F Temperature Source Oral Pulse Rate 65 Pulse Rate [Left Radial] 77 Respiratory Rate 22 Blood Pressure [Right Arm] 163/95 H Blood Pressure Mean [Right Arm] 117 Blood Pressure Source [Right Arm] Automatic Cuff Blood Pressure Position [Right Arm] Sitting 02 Sat by Pulse Oximetry 99 Oxygen Delivery Method Room Air Lab Data Labs: Lab Results 11/15/24 21:25: WBC 12.5 H, RBC 4.61, Hgb 14.1, Hct 41.1, MCV 89.2, MCH 30.6, MCHC 34.3, RDW 13.5, Plt Count 296, MPV 8.6, Neut % (Auto) 64.6, Lymph % (Auto) 25.1, [place] % (Auto) 5.2, Eos % (Auto) 4.0, Baso % (Auto) 0.3, Neut # (Auto) 8.1 H, Lymph # (Auto) 3.2, [place] # (Auto) 0.7, Eos # (Auto) 0.5 H, Baso # (Auto) 0.0, Sodium 140, Potassium 3.4 L, Chloride 103, Carbon Dioxide 31 H, Anion Gap 9.4, BUN 19 H, Creatinine 1.00, Estimated Creat Clear 112, Estimated GFR 59, Est GFR ( Amer) 72, Glucose 119 H, Calcium 9.9, Total Bilirubin 0.4, AST 27, ALT 23, Alkaline Phosphatase 85, Troponin I < 0.01, Total Protein 7.6, Albumin 4.6, Globulin 3.0, Albumin/Globulin Ratio 1.5, Lipase 138 11/15/24 23:05: Lactate 0.9 11/15/24 23:55: Troponin I < 0.01 11/15/24 21:25 11/15/24 21:25 Response Orders (Tests/Meds): ED MEDICATIONS Generic Name Dose Route Start Last Admin Trade Name Freq PRN Reason Stop Dose Admin Nitroglycerin 0.4 mg 11/15/24 21:27 11/15/24 21:51 Nitroglycerin 0.4mg Sl Tablet SL 11/16/24 21:27 0.4 mg Q5MINP PRN Administration Chest Pain Sodium Chloride 10 ml 11/15/24 23:00 11/15/24 23:01 Sodium Chloride 0.9% 10ml Syr (Rad Only) IV 12/15/24 22:59 10 ml NEEDED PRN Administration Maintain IV Site Discontinued Medications Generic Name Dose Route Start Last Admin Trade Name Freq PRN Reason Stop Dose Admin Acetaminophen 1,000 mg 11/15/24 21:34 11/15/24 21:50 Acetaminophen 1,000mg/100ml Vial IV 11/15/24 21:35 1,000 mg ONCE ONE Administration Aspirin 324 mg 11/15/24 21:27 11/15/24 21:33 Aspirin 81mg Chewable Tablet PO 11/15/24 21:28 324 mg ONCE ONE Administration Belladonna Alkaloids 60 ml 11/15/24 21:36 11/15/24 21:49 Belladonna Alkaloids 60 Ml Ml PO 11/15/24 21:37 60 ml ONCE ONE Administration Lactated Ringer's 1,000 mls @ 999 mls/hr 11/15/24 21:34 11/15/24 21:51 Lactated Ringer's 1000 Ml Bag IV 11/15/24 22:34 999 mls/hr .Q1H1M ONE Administration Iopamidol 70 ml 11/15/24 23:00 11/15/24 23:01 Iopamidol-370 (76%);100ml Bottle IV 11/15/24 23:01 70 ml ONCE ONE Administration Metoclopramide HCl 5 mg 11/15/24 21:34 11/15/24 21:50 Metoclopramide Hcl 10mg/2ml Vial IVP 11/15/24 21:35 5 mg ONCE ONE Administration Ondansetron HCl 4 mg 11/15/24 21:34 11/15/24 21:50 Ondansetron 4mg/2ml Vial IV 11/15/24 21:35 4 mg ONCE ONE Administration Sodium Chloride 50 ml 11/15/24 23:00 11/15/24 23:01 0.9 % Sodium Chloride 50 Ml Vial IV 11/15/24 23:01 50 ml ONCE ONE Administration ORDERS Category Date Time Status CT abdomen pelvis w con Stat Cat Scan 11/15/24 21:[address] angio chest PE protocol Stat Cat Scan 11/15/24 21:34 Completed Complete Blood Count Auto Diff Stat Lab 11/15/24 21:25 Completed Comprehensive Metabolic Panel Stat Lab 11/15/24 21:25 Completed Lactic Acid Stat Lab 11/15/24 23:05 Completed Lipase Stat Lab 11/15/24 21: Completed Troponin I Stat Lab 11/15/24 23:55 Ordered ECG Data Tracing #1: Attestation: I reviewed this ECG and interpreted as documented below: ECG Narrative: Normal sinus rhythm with a ventricular rate of [address] changes concerning for ischemia. Normal axis and intervals. ECG initial impression date: 11/15/24 ECG initial impression time: 21:22 MDM Narrative Medical Decision Narrative: In summary, this patient is a 49-year-old female presenting to the Emergency Department for evaluation of intermittent epigastric/chest pain. It does seem that this started after she started Ozempic. Differential diagnoses considered include but are not limited to ACS, dysrhythmia, gastroparesis, pancreatitis, GERD, peptic ulcer disease, PE, aortic pathology. Ruling out the most morbid conditions drove assessment. It should be noted patient's history includes hypertension, hyperlipidemia, diabetes, ANTHONY, tobacco use which are not at goal therapy. This complicates all aspects of care by increasing patient's risk for morbidity. I reviewed patient's past medical records and noted previous cardiology evaluations as well as catheterization 10/13/2024 with nonocclusive CAD. On exam, the patient is uncomfortable appearing. she has mild epigastric tenderness. Cardiopulmonary exam is reassuring. Vitals are reassuring on cardiac telemetry with the exception of mild hypertension. Workup included CBC, CMP, troponin, lipase, lactic acid, CTA PE protocol, CT abdomen and pelvis with IV contrast. She was given IV Toradol, Tylenol, GI cocktail, Reglan for symptomatic improvement. EKG obtained is reassuring. I independently interpreted CT scan prior to the radiologist read and noted mild dilation of her stomach with a lot of fluid and debris as well as some mild thickening of her proximal small intestine. I do not note any consolidation concerning for pneumonia, I do not see any large PE. Please see their read for final interpretation. Labs were obtained that demonstrated very mild leukocytosis, which is nonspecific. Chemistries are reassuring with only very mild hypokalemia, mildly elevated BUN, mildly elevated CO2. Troponin negative, lipase negative, liver enzymes and kidney function reassuring. At this time, I feel it is possible this could be side effect of her Ozempic versus gastritis/peptic ulcer disease. Patient care signed of the oncoming provider, Dr. Hill, pending CT reads and 2nd troponin. <Devan Hill MD - Last Filed: 11/16/24 01:21> Vital Signs Vital Signs: 11/15/24 21:24 11/15/24 22:03 Temperature 99.2 F Temperature Source Oral Pulse Rate 65 Pulse Rate [Left Radial] 77 Respiratory Rate 22 Blood Pressure [Right Arm] 163/95 H Blood Pressure Mean [Right Arm] 117 Blood Pressure Source [Right Arm] Automatic Cuff Blood Pressure Position [Right Arm] Sitting 02 Sat by Pulse Oximetry 99 Oxygen Delivery Method Room Air Lab Data Labs: Lab Results 11/15/24 21:25: WBC 12.5 H, RBC 4.61, Hgb 14.1, Hct 41.1, MCV 89.2, MCH 30.6, MCHC 34.3, RDW 13.5, Plt Count 296, MPV 8.6, Neut % (Auto) 64.6, Lymph % (Auto) 25.1, [place] % (Auto) 5.2, Eos % (Auto) 4.0, Baso % (Auto) 0.3, Neut # (Auto) 8.1 H, Lymph # (Auto) 3.2, [place] # (Auto) 0.7, Eos # (Auto) 0.5 H, Baso # (Auto) 0.0, Sodium 140, Potassium 3.4 L, Chloride 103, Carbon Dioxide 31 H, Anion Gap 9.4, BUN 19 H, Creatinine 1.00, Estimated Creat Clear 112, Estimated GFR 59, Est GFR ( Amer) 72, Glucose 119 H, Calcium 9.9, Total Bilirubin 0.4, AST 27, ALT 23, Alkaline Phosphatase 85, Troponin I < 0.01, Total Protein 7.6, Albumin 4.6, Globulin 3.0, Albumin/Globulin Ratio 1.5, Lipase 138 11/15/24 23:05: Lactate 0.9 11/15/24 23:55: Troponin I < 0.01 Response Orders (Tests/Meds): ED MEDICATIONS Generic Name Dose Route Start Last Admin Trade Name Freq PRN Reason Stop Dose Admin Nitroglycerin 0.4 mg 11/15/24 21:27 11/15/24 21:51 Nitroglycerin 0.4mg Sl Tablet SL 11/16/24 21:27 0.4 mg Q5MINP PRN Administration Chest Pain Sodium Chloride 10 ml 11/15/24 23:00 11/15/24 23:01 Sodium Chloride 0.9% 10ml Syr (Rad Only) IV 12/15/24 22:59 10 ml NEEDED PRN Administration Maintain IV Site Discontinued Medications Generic Name Dose Route Start Last Admin Trade Name Freq PRN Reason Stop Dose Admin Acetaminophen 1,000 mg 11/15/24 21:34 11/15/24 21:50 Acetaminophen 1,000mg/100ml Vial IV 11/15/24 21:35 1,000 mg ONCE ONE Administration Aspirin 324 mg 11/15/24 21:27 11/15/24 21:33 Aspirin 81mg Chewable Tablet PO 11/15/24 21:28 324 mg ONCE ONE Administration Belladonna Alkaloids 60 ml 11/15/24 21:36 11/15/24 21:49 Belladonna Alkaloids 60 Ml Ml PO 11/15/24 21:37 60 ml ONCE ONE Administration Lactated Ringer's 1,000 mls @ 999 mls/hr 11/15/24 21:34 11/15/24 21:51 Lactated Ringer's 1000 Ml Bag IV 11/15/24 22:34 999 mls/hr .Q1H1M ONE Administration Iopamidol 70 ml 11/15/24 23:00 11/15/24 23:01 Iopamidol-370 (76%);100ml Bottle IV 11/15/24 23:01 70 ml ONCE ONE Administration Metoclopramide HCl 5 mg 11/15/24 21:34 11/15/24 21:50 Metoclopramide Hcl 10mg/2ml Vial IVP 11/15/24 21:35 5 mg ONCE ONE Administration Ondansetron HCl 4 mg 11/15/24 21:34 11/15/24 21:50 Ondansetron 4mg/2ml Vial IV 11/15/24 21:35 4 mg ONCE ONE Administration Sodium Chloride 50 ml 11/15/24 23:00 11/15/24 23:01 0.9 % Sodium Chloride 50 Ml Vial IV 11/15/24 23:01 50 ml ONCE ONE Administration ORDERS Category Date Time Status CT abdomen pelvis w con Stat Cat Scan 11/15/24 21:[address] angio chest PE protocol Stat Cat Scan 11/15/24 21:34 Completed Complete Blood Count Auto Diff Stat Lab 11/15/24 21:25 Completed Comprehensive Metabolic Panel Stat Lab 11/15/24 21:25 Completed Lactic Acid Stat Lab 11/15/24 23:05 Completed Lipase Stat Lab 11/15/24 21:25 Completed Troponin I Stat Lab 11/15/24 23:55 Ordered MDM Narrative Medical Decision Narrative: In summary, this patient is a 49-year-old female presenting to the Emergency Department for evaluation of intermittent epigastric/chest pain. It does seem that this started after she started Ozempic. Differential diagnoses considered include but are not limited to ACS, dysrhythmia, gastroparesis, pancreatitis, GERD, peptic ulcer disease, PE, aortic pathology. Ruling out the most morbid conditions drove assessment. It should be noted patient's history includes hypertension, hyperlipidemia, diabetes, ANTHONY, tobacco use which are not at goal therapy. This complicates all aspects of care by increasing patient's risk for morbidity. I reviewed patient's past medical records and noted previous cardiology evaluations as well as catheterization 10/13/2024 with nonocclusive CAD. On exam, the patient is uncomfortable appearing. she has mild epigastric tenderness. Cardiopulmonary exam is reassuring. Vitals are reassuring on cardiac telemetry with the exception of mild hypertension. Workup included CBC, CMP, troponin, lipase, lactic acid, CTA PE protocol, CT abdomen and pelvis with IV contrast. She was given IV Toradol, Tylenol, GI cocktail, Reglan for symptomatic improvement. EKG obtained is reassuring. I independently interpreted CT scan prior to the radiologist read and noted mild dilation of her stomach with a lot of fluid and debris as well as some mild thickening of her proximal small intestine. I do not note any consolidation concerning for pneumonia, I do not see any large PE. Please see their read for final interpretation. Labs were obtained that demonstrated very mild leukocytosis, which is nonspecific. Chemistries are reassuring with only very mild hypokalemia, mildly elevated BUN, mildly elevated CO2. Troponin negative, lipase negative, liver enzymes and kidney function reassuring. At this time, I feel it is possible this could be side effect of her Ozempic versus gastritis/peptic ulcer disease. Patient care signed of the oncoming provider, Dr. Hill, pending CT reads and 2nd troponin. Sergio GODFREY: I assumed care of the patient at the time of handoff from the prior provider. On reassessment patient ann stable. Reports some symptomatic improvement. CT imaging on my independent interpretation shows some thickening of the jejunum and some associated lymph nodes. No evidence of intra thoracic pathology. Repeat troponin returns undetectably low. Interactive discussion was had with patient regarding presentation and symptoms. Could be related to Ozempic. Given improvement after nitro and location of patient's pain, could be related to esophageal spasm. I discussed with her about following up for upper endoscopy. With regards to the nodules noted on CT, patient is aware and has followed up in the past. Patient was discharged in stable condition return precautions.
[2024-11-15 21:48] LABS: Basophils % 0.3 % (0.1-2.0); Eosinophils # 0.5 K/mm3 (0.0-0.4); Hematocrit 41.1 % (37.0-47.0); Hemoglobin 14.1 g/dL (12.2-16.2); Lymphocytes # 3.2 K/mm3 (0.7-4.5); Lymphocytes % 25.1 % (10-50); Mean Corpuscular HGB Conc 34.3 g/dL (31.8-35.4); Mean Corpuscular Hemoglobin 30.6 pg (27.0-31.2); Mean Corpuscular Volume 89.2 fl (81-99); Mean Platelet Volume 8.6 fl (7.4-10.4); Monocytes # 0.7 K/mm3 (0.1-1.0); Monocytes % 5.2 % (1.7-9.3); Neutrophils # 8.1 K/mm3 (1.8-7.8); Neutrophils % 64.6 % (37.0-80.0); Platelet Count 296 K/mm3 (142-424); Red Blood Count 4.61 M/mm3 (4.20-5.40); Red Cell Distribution Width 13.5 % (11.5-17.5); White Blood Count 12.5 K/mm3 (4.8-10.8)
[2024-11-15] MEDS: BELLADONNA ALKALOIDS 60 ML ML PO (21:49)
--- NOTE | 2024-11-15 21:49 | PC.NURSE ---
Dr Benitez at bedside . call light in reach
[2024-11-15] MEDS: ACETAMINOPHEN 1,000MG/100ML VIAL 1000 MG IV (21:50)
[2024-11-15] MEDS: ONDANSETRON 4MG/2ML VIAL 4 MG IV (21:50)
[2024-11-15] MEDS: METOCLOPRAMIDE HCL 10MG/2ML VIAL 5 MG IVP (21:50)
[2024-11-15] MEDS: NITROGLYCERIN 0.4MG SL TABLET 0.4 MG SL (21:51)
[2024-11-15] MEDS: LACTATED RINGERS 1000ML 1,000 ML 999 ML IV (21:51)
[2024-11-15 22:03] VITALS: PULSE 65
[2024-11-15 22:03] LABS: Chloride 103 mmol/L (98-107)
[2024-11-15 22:04] LABS: Albumin Level 4.6 g/dl (3.5-5.0); Potassium 3.4 mmoL/L (3.5-5.1); Sodium 140 mmol/L (136-145)
[2024-11-15 22:06] LABS: Blood Urea Nitrogen 19 mg/dl (7-17); Creatinine Clearance Estimated 112 mL/min (50-200); Estimated Glomerular Filt Rate 59 ml/min (>60); GFR (African American) 72 ML/MIN (>60); Lipase 138 U/L (23-300)
[2024-11-15 22:07] LABS: Alanine Aminotransferase 23 U/L (12-78); Albumin/Globulin Ratio 1.5 (1.1-1.8); Alkaline Phosphatase 85 U/L (38-126); Anion Gap 9.4 mEq/L (5-15); Aspartate Amino Transferase 27 U/L (14-36); Bilirubin,Total 0.4 mg/dl (0.2-1.3); Calcium 9.9 mg/dl (8.4-10.2); Carbon Dioxide 31 mmol/L (22.0-30.0); Glucose 119 mg/dl (74-100); Total Protein,Serum 7.6 g/dl (6.3-8.2)
[2024-11-15 22:38] LABS: Troponin I < 0.01 ng/ml (0.00-0.034)
[2024-11-15] MEDS: 0.9 % SODIUM CHLORIDE 50 ML VIAL IV (23:01)
[2024-11-15] MEDS: IOPAMIDOL-370 (76%);100ML BOTTLE 70 ML IV (23:01)
[2024-11-15] MEDS: SODIUM CHLORIDE 0.9% 10ML SYR (RAD ONLY) 10 ML IV (23:01)
--- NOTE | 2024-11-15 23:41 | PC.NURSE ---
rounded on pt at this time. pt asleep on left side. VSS call light within reach
[2024-11-15 23:51] LABS: Lactic Acid 0.9 mmol/L (0.7-2.1)
[2024-11-16 01:18] LABS: Troponin I < 0.01 ng/ml (0.00-0.034)
[2024-11-16 01:27] VITALS: BP 135/73; PULSE 59; RESP 18; TEMP 37.3; O2SAT 99
== END 2024-11-16 01:28 | disposition home or self-care (01) ==
PROVIDERS: Emergency Provider Emergency Medicine; PCP Nurse Practitioner Family
DX: R59.0 Localized enlarged lymph nodes (principal); R07.9 Chest pain, unspecified; R10.13 Epigastric pain; I10 Essential (primary) hypertension; E78.5 Hyperlipidemia, unspecified; G47.33 Obstructive sleep apnea (adult) (pediatric); E11.9 Type 2 diabetes mellitus without complications; Z72.0 Tobacco use
CPT/HCPCS: 71275; 74177; 80053; 83605; 83690; 84484; 85025; 93005; 96361; 96374; 96375; 99285; J0131; J2405; J2765; J7120; Q9967

== ENCOUNTER 2025-02-16 10:17 | Outpatient (CLI) | payer OTHER, SELFPAY ==
[2025-02-16 18:51] LABS: Microalbumin/Creatinine Ratio 6.3
[2025-02-16 18:54] LABS: Creatinine,Urine Random 127 mg/dL (Not Estab.)
== END 2025-02-16 23:59 | disposition home or self-care (01) ==
LOC: LAB.DROPOF 02-17 10:14
PROVIDERS: PCP Nurse Practitioner Family; Visit Provider Nurse Practitioner Family
DX: E11.9 Type 2 diabetes mellitus without complications (principal)
CPT/HCPCS: 82043; 82570; 87086

== ENCOUNTER 2025-06-02 09:36 | Outpatient (CLI) | payer OTHER, SELFPAY ==
--- OUTSIDE RECORDS SUMMARY | 2025-04-27 10:44 | XMS_ITS | Encounter Summary ---
Author Organization Healthcare Address [address] [place] [address] Care Team Providers Care Rewinder Operator Name Role Phone Bala Seaman APRN Primary Care Provider [phone] Reason for Referral * Imaging (Routine) - Closed Specialty Diagnoses / Procedures Referred By Contac t Referred To Contact Radiology Diagnoses Elevated LFTs Procedures US Abdomen Focused Region Liver Esetvan Tim APRN [address] [address] Phone: tel: fax: Referral ID Status Reason Start Date Expiration Date Visits Re quested Visits Authorized [id number] Closed 03/29/2025 09/28/2026 1 1 Reason for Visit * Imaging (Routine) - Closed Specialty Diagnoses / Procedures Referred By Contac t Referred To Contact Radiology Diagnoses Elevated LFTs Procedures US Abdomen Focused Region Liver Estevan Tim APRN [address] [address] Phone: tel: fax: Referral ID Status Reason Start Date Expiration Date Visits Re quested Visits Authorized [id number] Closed 03/29/2025 09/28/2026 1 1 Encounter Details Date Type Department Care Team (Latest Contact Info) Description 04/27/2025 10:44 AM EDT - 04/27/2025 11:59 PM EDT Hospital Encounter [facility] Ultrasound [address] [place] [address] Elevated LFTs Discharge Disposition: Home or Self Care Social History Tobacco Use Types Packs/Day Years Used Date Smoking Tobacco: Every Day Cigarettes 1.5 32.7 Started: 09/15/1992 Passive Smoke Exposure: Current Smokeless Tobacco: Never Alcohol Use Standard Drinks/Week Comments Yes 0 (1 standard drink = 0.6 oz pur e alcohol) social PHQ-2 Answer Date Recorded Patient Health Questionnaire-2 Score 0 03/29/2025 PHQ-9 Answer Date Recorded Patient Health Questionnaire-9 Score 0 03/29/2025 Comments Unknown Sex and Gender Information Value Date Recorded Sex Assigned at Not on file Legal Sex Female 8:22 PM EDT Gender Identity Not on file Sexual Orientation Not on file documented as of this encounter Medications at Time of Discharge aspirin 81 MG EC tablet Take 1 tablet (81 mg) by mouth 1 (one) time each day. buPROPion SR (Wellbutrin SR) 150 MG 12 hr tablet Take 1 tablet (150 mg) by mouth in the morning and 1 tablet (150 mg) before bedtime. cyclobenzaprine (Flexeril) 10 MG tablet Take 0.5 tablets by mouth 3 times a day as needed for muscle spasms. 90 tablet 03/29/2025 DULoxetine (Cymbalta) [address] capsule TAKE 1 CAPSULE BY MOUTH ONCE DAILY EVERY AFTERNOON 11/02/2024 DULoxetine (Cymbalta) [address] capsule Take 1 capsule (60 mg) by mouth. folic acid (Folvite) 1 MG tablet Take 2 tablets by mouth daily. 60 tablet 11 12/30/2024 metFORMIN (Glucophage) 500 MG tablet Take 1 tablet (500 mg) by mouth in the morning and 1 tablet (500 mg) before bedtime. 10/20/2024 methotrexate 2.5 MG tablet Follow directions carefully, and ask to explain any part you do not understand. Take exactly as directed. take 9 tabs one day once a week (4 in am and 5 in pm) and take it this way indefinitely. 36 tablet 2 03/29/2025 Perfluorohexyloc tane (Miebo) 1.338 GM/ML solution Administer 1 drop into affected eye(s) 4 times a day. 5 mL 12 03/25/2025 predniSONE (Deltasone) 5 MG tablet 3 tabs every day x7d then 2tabs every day x7d then 1 tab every day x7d then stop 42 tablet 11/30/2024 predniSONE (Deltasone) 5 MG tablet 3 tabs every day x7d then 2tabs every day x7d then 1 tab every day x7d then stop 42 tablet 01/03/2025 valACYclovir (Valtrex) 1 g tablet take 1 tablet by mouth every 8 hours for 7 days 02/16/2025 celecoxib (CeleBREX) 200 MG capsule Take 1 capsule by mouth 2 times a day. 60 capsule 2 03/29/2025 documented as of this encounter Plan of Treatment Upcoming Encounters Date Type Department Care Team (Late st Contact Info) Description 06/30/2025 1:00 PM EDT Office Visit [facility] Medicine Specialties [address] [place] [address] Estevan Tim APRN [address] [place] [address] 03/27/2026 9:30 AM EDT Office Visit [facility] [address] [place] [address] Estevan Garcia MD [address] [place] [id number] documented as of this encounter Procedures Procedure Name Priority Date/Time Associated Diagnosis Comments US ABDOMEN FOCUSED REGION Routine 04/27/2025 11:02 AM EDT Elevated LFTs documented in this encounter Results * US Abdomen Focused Region Liver (04/27/2025 11:02 AM EDT) Anatomical Region Laterality Modality Abdomen Ultrasound Impressions 04/27/2025 11:38 AM EDT No acute or worrisome sonographic findings within the right upper quadrant. Normal morphology and echotexture of the liver without significant intrahepatic or extrahepatic cholestasis. CRITICAL RESULT: No. COMMUNICATION: Per this written report. By electronically signing this report, I, the attending physician, attest that I have personally reviewed the images/data for the above examination(s) and agree with the final edited report. Drafted by Clay Dawkins MD on 04/27/2025 11:27 AM Final report signed by Georgia Kapoor MD on 04/27/2025 11:38 AM Narrative 04/27/2025 11:38 AM EDT CLINICAL INDICATION: elevated lft TECHNIQUE: Focused static and cine grayscale ultrasound images of portions of the abdomen were obtained COMPARISON: None. FINDINGS: Liver: Smooth surface outline. Normal echogenicity and echotexture. No suspicious focal lesion. No intrahepatic biliary ductal dilatation. Gallbladder: Absent. Common duct: Nondilated measuring 5 mm at the matilde hepatis. Portal vein: Patent with antegrade flow. Free fluid: No right upper quadrant ascites. Right kidney: Grossly unremarkable without hydronephrosis or sizable renal masses. Procedure Note Georgia Kapoor MD - 04/27/2025 CLINICAL INDICATION: elevated lft TECHNIQUE: Focused static and cine grayscale ultrasound images of portions of theabdomen were obtained COMPARISON: None. FINDINGS: Liver: Smooth surface outline. Normal echogenicity and echotexture. Nosuspicious focal lesion. No intrahepatic biliary ductal dilatation. Gallbladder: Absent. Common duct: Nondilated measuring 5 mm at the matilde hepatis. Portal vein: Patent with antegrade flow. Free fluid: No right upper quadrant ascites. Right kidney: Grossly unremarkable without hydronephrosis or sizable renalmasses. IMPRESSION: No acute or worrisome sonographic findings within the right upperquadrant. Normal morphology and echotexture of the liver without significantintrahepatic or extrahepatic cholestasis. CRITICAL RESULT: No. COMMUNICATION: Per this written report. By electronically signing this report, I, the attending physician, attestthat I have personally reviewed the images/data for the aboveexamination(s) and agree with the final edited report. Drafted by Clay Dawkins MD on 04/27/2025 11:27 AM Final report signed by Georgia Kapoor MD on 04/27/2025 11:38 AM Estevan Tim APRN IMG US PROCEDURES Final Result documented in this encounter Visit Diagnoses Diagnosis Elevated LFTs Other abnormal blood chemistry documented in this encounter Additional Health Concerns Assessment Noted Time PHQ-9 Depression Total Score: 0 03/29/20 11:03 AM EDT A fall risk assessment has been complete d for the patient 03/29/2025 11:03 AM EDT A Body Mass Index follow-up plan has been documented for the patient 03/29/2025 11:41 AM EDT documented as of this encounter Care Teams Rewinder Operator Relationship Specialty Start Date End Date Bala Seaman APRN [address] [place] [address] PCP - General 11/30/24 documented as of this encounter
--- OUTSIDE RECORDS SUMMARY | 2025-06-02 09:38 | XMS_ITS | Encounter Summary ---
Author Organization Healthcare Address [address] [place] [address] Care Team Providers Care Solar Consultant Name Role Phone Bala Seaman APRN Primary Care Provider [phone] Encounter Details Date Type Department Care Team (Late st Contact Info) Description 01/31/2025 Results Follow-Up [facility] Medicine Specialties [address] [place] [address] Estevan Tim APRN [address] [place] [address] Social History Tobacco Use Types Packs/Day Years Used Date Smoking Tobacco: Every Day Passive Smoke Exposure: Current Smokeless Tobacco: Never [...] on file documented as of this encounter Functional Status * Over the past 2 weeks, how often have you been bothered by any of the following problems? Question Answer Date of Assessment Author Little interest or pleasure in doing things Not at all 03/29/2025 11:03 AM EDT Madonna Aguiar Feeling down, depressed, or hopeless Not at all 03/29/2025 11:03 AM EDT Madonna Aguiar Patient Health Questionnaire -2 Score 0 03/29/2025 11:03 AM EDT Madonna Aguiar * Question Answer Date of Assessment Author Trouble falling or staying a sleep, or sleeping too much Not at all 03/29/2025 11:03 AM EDT Madonna Aguiar Feeling tired or having cam le energy Not at all 03/29/2025 11:03 AM EDT Madonna Aguiar Poor appetite or overeating Not at all 03/29/2025 11 :03 AM EDT Madonna Aguiar Feeling bad about yourself - or that you are a failure or have let yourself or your family down Not at all 03/29/2025 11:03 AM EDT Madonna Ardon Trouble concentrating on thi ngs, such as reading the newspaper or watching television Not at all 03/29/2025 11:03 AM EDT Madonna Aguiar Moving or speaking so slowly that other people could have noticed? Or the opposite - being so fidgety or restless that you have been moving around a lot more than usual. Not at all 03/29/2025 11:03 AM EDT Madonna Aguiar Thoughts that you would be b nakita off or hurting yourself in some way Not at all 03/29/2025 11:03 AM Madonna Johnson Patient Health Questionnaire -9 Score 0 03/29/2025 11:03 AM EDT Madonna Aguiar * How difficult have these problems made it for you to do your work, take care of things at home, or get along with other people? Answer Date of Assessment Author Not difficult at all 03/29/2025 11:03 AM EDT Madonna Nation documented as of this encounter Plan of Treatment Upcoming Encounters Date Type Department Care Team (Late st Contact Info) Description 06/30/2025 1:00 PM EDT Office Visit [facility] Specialties [address] [place] [address] Estevan Tim, [employer] [address] [place] [address] 03/27/2026 9:30 AM EDT Office Visit [facility] [address] [place] [address] Estevan Garcia MD [address] [place] [address] documented as of this encounter Visit Diagnoses Not on filedocumented in this encounter Additional Health Concerns Assessment Noted Time PHQ-9 Depression Total Score: 0 01/25/20 10:59 AM EDT A fall risk assessment has been complete d for the patient 01/24/2025 10:59 AM EDT A Body Mass Index follow-up plan has been documented for the patient 01/25/2025 10:57 AM EDT documented as of this encounter Care Teams Solar Consultant Relationship Specialty Start Date End Date Bala Seaman APRN [address] [place] [address] PCP - General 11/30/24 documented as of this encounter
--- OUTSIDE RECORDS SUMMARY | 2025-06-02 09:38 | XMS_ITS | Clinical Summary ---
Author Organization [facility] Address [address] [place] [address] Care Team Providers Care Salvage Diver Name Role Phone Bala Seaman APRN Primary Care Provider [phone] Allergies No known active allergies Medications aspirin 81 MG EC tablet Take 1 tablet (81 mg) by mouth 1 (one) time each day. Active buPROPion SR (Wellbutrin SR) 150 MG 12 hr tablet Take 1 tablet (150 mg) by mouth in the morning and 1 tablet (150 mg) before bedtime. Active DULoxetine (Cymbalta) [address] capsule TAKE 1 CAPSULE BY MOUTH ONCE DAILY EVERY AFTERNOON 11/02/19 25 Active DULoxetine (Cymbalta) [address] capsule Take 1 capsule (60 mg) by mouth. Active metFORMIN (Glucophage) 500 MG tablet Take 1 tablet (500 mg) by mouth in the morning and 1 tablet (500 mg) before bedtime. 10/20/19 25 Active predniSONE (Deltasone) 5 MG tablet 3 tabs every day x7d then 2tabs every day x7d then 1 tab every day x7d then stop 42 tablet 12/01/19 25 Active Additional Information Patient not taking.Reported on 03/29/2025 folic acid (Folvite) 1 MG tablet Take 2 tablets by mouth daily. 60 tablet 11 12/31/19 25 Active predniSONE (Deltasone) 5 MG tablet 3 tabs every day x7d then 2tabs every day x7d then 1 tab every day x7d then stop 42 tablet 01/04/20 25 Active Additional Information Patient not taking.Reported on 03/29/2025 valACYclovir (Valtrex) 1 g tablet take 1 tablet by mouth every 8 hours for 7 days 02/17/20 25 Active Perfluorohexylocta ne (Miebo) 1.338 GM/ML solution Administer 1 drop into affected eye(s) 4 times a day. 5 mL 12 03/25/20 25 Active cyclobenzaprine (Flexeril) 10 MG tablet Take 0.5 tablets by mouth 3 times a day as needed for muscle spasms. 90 tablet 03/29/20 25 Active methotrexate 2.5 MG tablet Follow directions carefully, and ask to explain any part you do not understand. Take exactly as directed. take 9 tabs one day once a week (4 in am and 5 in pm) and take it this way indefinitely. 36 tablet 2 03/29/20 25 Active celecoxib (CeleBREX) 200 MG capsuleIndications :Osteoarthritis, unspecified osteoarthritis type, unspecified site Take 1 capsule by mouth 2 times a day. 60 capsule 1 05/31/20 25 Active celecoxib (CeleBREX) 200 MG capsule Take 1 capsule by mouth 2 times a day. 60 capsule 2 03/29/20 25 025 Discontin ued(Reord er) Active Problems No known active problems Encounters Date Type Department Care Team Description 05/27/2025 Community [facility] [address] [place] [address] Bala Seaman, NHAN 04/27/2025 10:44 AM EDT - 04/27/2025 11:59 PM EDT Hospital Encounter [facility] Ultrasound [address] [place] [address] Elevated LFTs Discharge Disposition: Home or Self Care 04/27/2025 Travel 03/29/2025 11:59 AM EDT - 03/29/2025 11:59 PM EDT Hospital Encounter [facility] Radiology [address] [place] [address] Osteoarthritis, unspecified osteoarthritis type, unspecified site; Muscle weakness Discharge Disposition: Home or Self Care 03/29/2025 11:00 AM EDT Office Visit [facility] Medicine Specialties [address] [place] [address] Estevan Tim, GUNSTOCK REPAIRER P-ANCA and MPO antibodies positive (Primary Dx); Osteoarthritis, unspecified osteoarthritis type, unspecified site; Muscle weakness; Type 2 diabetes mellitus with other specified complication, without long-term current use of insulin (CMS/HCC); RUQ pain; Elevated LFTs; Sicca syndrome (CMS/HCC); High risk medication use; Leg pain, bilateral 03/29/2025 Telephone [facility] [address] [place] [address] None, None Rehan GERARD 03/29/2025 Results [facility] [address] [place] [address] Estevan Tim APRN 03/29/2025 Travel 03/25/2025 9:00 AM EDT Office Visit [facility] [address] [place] [address] Estevan Garcia MD Diabetes mellitus type 2 without retinopathy ([facility]/HCC) (Primary Dx); Insufficiency of tear film of both eyes; Myopia of both eyes; Regular astigmatism of both eyes; Presbyopia of both eyes 03/25/2025 Travel from Last 3 Months Family History Medical History Relation Name Comments Heart attack Father Lung cancer Father Prostate cancer Father Cancer Maternal Grandfather Broderick nicely Heart attack Maternal Grandfather Broderick nicely Prostate cancer Maternal Grandfather Broderick nicely Cancer Other 1 Zeynep Deidrear-Nicely Hypothyroidism Other 1 Zeynep Ayaka-Morena Leukemia Other 2 Breast cancer Other 3 Rheum arthritis Other 4 Prostate cancer Other 5 Lung cancer Paternal Grandfather Relation Name Status Comments Father Maternal Grandfather Broderick nicely Other 1 Zeynep Hollar-Nicely Other 2 Other 3 Other 4 Other 5 Paternal Grandfather Social History Tobacco Use Types Packs/Day Years [...] on file Sexual Orientation Not on file Last Filed Vital Signs Vital Sign Reading Time Taken Comments Blood Pressure 109/74 03/29/2025 10:56 AM EDT Pulse 56 03/29/2025 10:56 AM EDT Temperature 36.9 C (98.5 F) 03/29/2025 10:56 AM EDT Respiratory Rate 16 03/29/2025 10:56 AM EDT Oxygen Saturation 96% 03/29/2025 10:56 AM EDT Inhaled Oxygen Concentration - - Weight 101 kg (222 lb 10.6 oz) 03/29/2025 10:56 AM EDT Height 175.3 cm (5' 9 ) 03/29/2025 10:56 AM EDT Body Mass Index 32.88 03/29/2025 10:56 AM EDT Plan of Treatment Upcoming Encounters Date Type Department Care Team (Late st Contact Info) Description 06/30/2025 1:00 PM EDT Office Visit [facility] Medicine Specialties [address] [place] [phone] Estevan Tim, GUNSTOCK REPAIRER [address] [place] [address] 03/27/2026 9:30 AM EDT Office Visit [facility] [address] [address] Estevan Garcia MD [address] [place] [address] Health Maintenance Due Date Last Done Comments [facility]-HIV Screening 1977 [facility]-/Child/Adol SDOH Screenings 1977 [id number] Vaccine (#1) 1982 Diabetes: Dental Exam 1987 [facility]- SDOH Screenings 1995 [facility]-Adult SDOH Screenings 1995 [facility]-DTaP,Tdap,and Td Vaccines (1 - Tdap) 1996 [facility]-Hepatitis B Vaccines (1 of 3 - 19+ 3-dose series) 1996 [facility]-Pneumococcal Vaccine: Pediatrics (0 to 5 Years) and At-Risk Patients (6 to 49 Years) (1 of 2 - PCV) 1996 [facility]-Zoster Vaccines (1 of 2) 1996 [facility]-Pap Smear 1998 [facility]-Cervical Cancer Screening 2007 [facility]-HPV/Cotest 2007 CT Colonography 2022 Colonoscopy 2022 FIT-DNA 2022 FIT 2022 FOBT 2022 Sigmoidoscopy 2022 [facility]-Colorectal Cancer Screening 2022 [facility]-Influenza Vaccine (#1) 2025 [facility]-Diabetes: Hemoglobin A1C 06/29/2025 12/30/2024 [facility]-Depression Screening 03/29/2026 03/29/2025, 03/15 [facility]-Hepatitis C Screening Completed 11/30/2024 [facility]-Obesity Intervention Completed 025, 03/25/2025, 02/21/2025, Additional history exists HPV Vaccines Aged Out No longer eligi ble based on patient's age to complete this topic [facility]-HIB Vaccines Aged Out No longer e ligible based on patient's age to complete this topic [facility]-Hepatitis A Vaccines Aged Out No longer eligible based on patient's age to complete this topic [facility]-IPV Vaccines Aged Out No longer e ligible based on patient's age to complete this topic [facility]-Rotavirus Vaccines Aged Out No lo nger eligible based on patient's age to complete this topic Procedures Procedure Name Priority Date/Time Associated Diagnosis Comments US ABDOMEN FOCUSED REGION Routine 04/27/2025 11:02 AM EDT Elevated LFTs XR FEMUR LEFT 2+ VIEWS Routine 12:31 PM EDT Osteoarthritis, unspecified osteoarthritis type, unspecified site Muscle weakness XR FEMUR RIGHT 2+ VIEWS Routine 03/29/2025 12:31 PM EDT Osteoarthritis, unspecified osteoarthritis type, unspecified site Muscle weakness PROTEIN, URINE, RANDOM WITH CREATININE Routine 03/29/2025 12:10 PM EDT P-ANCA and MPO antibodies positive URINALYSIS WITH REFLEX MICROSCOPIC Routine 03/29/2025 12:10 PM EDT P-ANCA and MPO antibodies positive SERINE PROTEINASE 3 (PR3) ANTIBODY (SO) Routine 03/29/2025 11:57 AM EDT P-ANCA and MPO antibodies positive Elevated LFTs SEDIMENTATION RATE, AUTOMATED Routine 03/29/2025 11:57 AM EDT P-ANCA and MPO antibodies positive C-REACTIVE PROTEIN, PLASMA Routine 03/29/2025 11:57 AM EDT P-ANCA and MPO antibodies positive COMPREHENSIVE METABOLIC PANEL, PLASMA Routine 03/29/2025 11:57 AM EDT P-ANCA and MPO antibodies positive CBC WITH AUTO DIFFERENTIAL Routine 03/29/2025 11:57 AM EDT P-ANCA and MPO antibodies positive MYELOPEROXIDASE (MPO) ANTIBODY (SO) Routine 03/29/2025 11:57 AM EDT P-ANCA and MPO antibodies positive VITAMIN D 25 HYDROXY Routine 03/29/2025 11:57 AM EDT Osteoarthritis, unspecified osteoarthritis type, unspecified site C3 COMPLEMENT Routine 03/29/2025 11:57 AM EDT P-ANCA and MPO antibodies positive C4 COMPLEMENT Routine 03/29/2025 11:57 AM EDT P-ANCA and MPO antibodies positive CRYOGLOBULIN, SERUM (SO) Routine 03/29/2025 11:57 AM EDT P-ANCA and MPO antibodies positive GLOMERULAR BASEMENT MEMBRANE ANTIBODY, IGG (SO) Routine 03/29/2025 11:57 AM EDT P-ANCA and MPO antibodies positive SSB (LA) (JASS) ANTIBODY, IGG (SO) Routine 03/29/2025 11:57 AM EDT P-ANCA and MPO antibodies positive HEMOGLOBIN A1C Routine 12/30/2024 12:05 PM EDT P-ANCA and MPO antibodies positive ACUTE HEPATITIS PANEL Routine 11/30/2024 9:01 AM EDT Sjogren syndrome (CMS/HCC) Serositis (CMS/HCC) from Last 3 Months or Most Recently Relevant to Health Maintenance Results * US Abdomen Focused Region Liver [...] signing this report, I, the attending physician, eran I have personally reviewed the images/data for the aboveexamination(s) and agree with the final edited report. Drafted by Clay Dawkins MD on 04/27/2025 11:27 AM Final report signed by Georgia Kapoor MD on 04/27/2025 11:38 AM [facility] Anastasia Tim GUNSTOCK REPAIRER IM US PROCEDURES Final Result * XR Femur Right 2+ Views (03/29/2025 12:31 PM EDT) Anatomical Region Laterality Modality Lower Extremities, Femur Right Digital Radiography Impressions 03/29/2025 1:05 PM EDT Mild osteoarthritis of the bilateral knee. CRITICAL RESULT: No. COMMUNICATION: Per this written report. Drafted by Noah Ga MD on 03/29/2025 1:03 PM Final report signed by Noah Ga MD on 03/29/2025 1:05 PM Narrative 03/29/2025 1:05 PM EDT CLINICAL INDICATION: new pain TECHNIQUE: XR FEMUR LEFT 2+ VIEWS, XR FEMUR RIGHT 2+ VIEWS COMPARISON: November 30, 2024. FINDINGS: 2 views of the left femur show normal hip and knee joint space and alignment. Osteophyte formation in the medial and patellofemoral compartment. Ossification of the soft tissues at the superior rim of the acetabulum. No fracture or osteonecrosis. Soft tissues are normal. 2 views of the right femur show normal hip and knee joint space and alignment. Osteophyte formation in the medial and patellofemoral compartment. No fracture or osteonecrosis. Soft tissues are normal. Procedure Note Noah Ga MD - 03/29/2025 CLINICAL INDICATION: new pain TECHNIQUE: XR FEMUR LEFT 2+ VIEWS, XR FEMUR RIGHT 2+ VIEWS COMPARISON: November 30, 2024. FINDINGS: 2 views of the left femur show normal hip and knee joint space andalignment. Osteophyte formation in the medial and patellofemoralcompartment. Ossification of the soft tissues at the superior rim of theacetabulum. No fracture or osteonecrosis. Soft tissues are normal. 2 views of the right femur show normal hip and knee joint space andalignment. Osteophyte formation in the medial and patellofemoralcompartment. No fracture or osteonecrosis. Soft tissues are normal. IMPRESSION: Mild osteoarthritis of the bilateral knee. CRITICAL RESULT: No. COMMUNICATION: Per this written report. Drafted by Noah Ga MD on 03/29/2025 1:03 PM Final report signed by Noah Ga MD on 03/29/2025 1:05 PM Estevan Tim [facility] IMG XR PROCEDURES Final Result * XR Femur Left 2+ Views (03/29/2025 12:31 PM EDT) Anatomical Region Laterality Modality Lower Extremities, Femur Left Digital Radiography Impressions 03/29/2025 1:05 PM EDT Mild osteoarthritis of the bilateral knee. CRITICAL RESULT: No. COMMUNICATION: Per this written report. Drafted by Noah Ga MD on 03/29/2025 1:03 PM Final report signed by Noah Ga MD on 03/29/2025 1:05 PM Narrative 03/29/2025 1:05 PM EDT CLINICAL INDICATION: new pain TECHNIQUE: XR FEMUR LEFT 2+ VIEWS, XR FEMUR RIGHT 2+ VIEWS COMPARISON: November 30, 2024. FINDINGS: 2 views of the left femur show normal hip and knee joint space and alignment. Osteophyte formation in the medial and patellofemoral compartment. Ossification of the soft tissues at the superior rim of the acetabulum. No fracture or osteonecrosis. Soft tissues are normal. 2 views of the right femur show normal hip and knee joint space and alignment. Osteophyte formation in the medial and patellofemoral compartment. No fracture or osteonecrosis. Soft tissues are normal. Procedure Note Noah Ga MD - 03/29/2025 CLINICAL INDICATION: new pain TECHNIQUE: XR FEMUR LEFT 2+ VIEWS, XR FEMUR RIGHT 2+ VIEWS COMPARISON: November 30, 2024. FINDINGS: 2 views of the left femur show normal hip and knee joint space andalignment. Osteophyte formation in the medial and patellofemoralcompartment. Ossification of the soft tissues at the superior rim of theacetabulum. No fracture or osteonecrosis. Soft tissues are normal. 2 views of the right femur show normal hip and knee joint space andalignment. Osteophyte formation in the medial and patellofemoralcompartment. No fracture or osteonecrosis. Soft tissues are normal. IMPRESSION: Mild osteoarthritis of the bilateral knee. CRITICAL RESULT: No. COMMUNICATION: Per this written report. Drafted by Noah Ga MD on 03/29/2025 1:03 PM Final report signed by Noah Ga MD on 03/29/2025 1:05 PM Estevan Tim APRN IMG XR PROCEDURES Final Result * Protein, Random, Urine with Creatinine (03/29/2025 12:10 PM EDT) Protein, Urine <6 mg/dL 03/29/2025 1:44 PM EDT [facility] Creatinine, Urine 71 mg/dL 03/29/2025 1:44 PM EDT [facility] Protein/Creatin ine Ratio 03/29/2025 1:44 PM EDT [facility] Urine Urine specimen obtained by clean catch procedure / Unknown Non-blood Collection / Unknown 03/29/2025 12:10 PM EDT 03/29/2025 12:10 PM EDT Estevan Tim APRN LAB URINE ORDERABLES Final Res ult [facility] [address] [place] [address] * Urinalysis with reflex microscopic (Culture NOT Included) (03/29/2025 12:10 PM EDT) Color, Urine Yellow LAB URINALYSIS - AUTOMATED METHOD 03/29/2025 1:24 PM EDT [facility] Clarity, Urine Clear LAB URINALYSIS - AUTOMATED METHOD 03/29/2025 1:24 PM EDT [facility] Spec [place], Urine 1.024 1.005 - 1.030 LAB URINALYSIS - AUTOMATED METHOD 03/29/2025 1:24 PM EDT [facility] pH, Urine 5.5 5.0 - 8.0 LAB URINALYSIS - AUTOMATED METHOD 03/29/2025 1:24 PM EDT [facility] Protein, Urine Negative Negative mg/dL LAB URINALYSIS - AUTOMATED METHOD 03/29/2025 1:24 PM EDT [facility] Glucose, Urine Negative Negative mg/dL LAB URINALYSIS - AUTOMATED METHOD 03/29/2025 1:24 PM EDT [facility] Ketones, Urine Negative Negative mg/dL LAB URINALYSIS - AUTOMATED METHOD 03/29/2025 1:24 PM EDT [facility] Blood, Urine Negative Negative LAB URINALYSIS - AUTOMATED METHOD 03/29/2025 1:24 PM EDT [facility] Bilirubin, Urine Negative Negative LAB URINALYSIS - AUTOMATED METHOD 03/29/2025 1:24 PM EDT [facility] Urobilinogen, Urine 0.2 0.2 to 1.0 mg/dL LAB URINALYSIS - AUTOMATED METHOD 03/29/2025 1:24 PM EDT [facility] Leukocytes, Urine Negative Negative LAB URINALYSIS - AUTOMATED METHOD 03/29/2025 1:24 PM EDT [facility] Nitrite, Urine Negative Negative LAB URINALYSIS - AUTOMATED METHOD 03/29/2025 1:24 PM EDT [facility] Urine Urine specimen obtained by clean catch procedure / Unknown Non-blood Collection / Unknown 03/29/2025 12:10 PM EDT 03/29/2025 12:10 PM EDT us Estevan Tim APRN LAB URINE ORDERABLES Final Res ult [facility] [address] [place] [address] * Cryoglobulin, Serum (SO) (03/29/2025 11:57 AM EDT) Pathologist [facility] Cryoglobulin, S SEE COMMENTS Negative %ppt 03/31/2025 12:25 PM EDT [facility] ([place]) Comment: Negative. This test is negative at 24 hours. All samples are held and reviewed again at 7 days. If delayed precipitation occurs after 7 days, Immunofixation will be performed and an additional report will follow. Test Performed by: [facility] [address] [place] [address] Car Rental Manager: Rasta Tyler Ph.D.; CLIA# [id number] Blood Venous blood specimen / Unknown Venipuncture / Unknown 03/29/2025 11:57 AM EDT 03/29/2025 11:57 AM EDT Estevan Tim APRN LAB REF LAB BLOOD AND FLUID OR D Final Result [facility] JAYME) * Serine Protease 3 Antibody (03/29/2025 11:57 AM EDT) [facility] Serine Proteinase 3 (PR3) Ab, IgG 1 0 - 19 AU/mL 03/31/2025 2:04 PM EDT [facility] ([place]) Blood Venous blood specimen / Unknown Venipuncture / Unknown 03/29/2025 11:57 AM EDT 03/29/2025 11:57 AM EDT Narrative [facility] ([place]) - 03/31/2025 2:04 PM EDT INTERPRETIVE INFORMATION: Serine Proteinase 3, IgG 19 AU/mL or Less ........ Negative 20-25 AU/mL ............. Equivocal 26 AU/mL or Greater ..... Positive Approximately 85% of patients with a C-ANCA pattern by IFA have antibodies specific for PR3. Performed By: [employer] [address] [place] [address] Nutrition Services Associate: Christopher Paulino MD, PhD CLIA Number: [id number] us Estevan Tim APRN LAB BLOOD ORDERABLES Final Res ult [employer]) [address] [place] [address] * (ABNORMAL) Myeloperoxidase Antibody (03/29/2025 11:57 AM EDT) Myeloperoxidase (MPO) Ab, IgG 87(H) 0 - 19 AU/mL 03/31/2025 2:04 PM EDT [facility]) Blood Venous blood specimen / Unknown Venipuncture / Unknown 03/29/2025 11:57 AM EDT 03/29/2025 11:57 AM EDT Narrative [employer]) - 03/31/2025 2:04 PM EDT INTERPRETIVE INFORMATION: Myeloperoxidase Abs, IgG 19 AU/mL or Less ......... Negative 20-25 AU/mL .............. Equivocal 26 AU/mL or Greater ...... Positive Approximately 90% of patients with a P-ANCA pattern by IFA have antibodies specific for MPO. Performed By: [employer] [address] [place] [address] Nutrition Services Associate: Christopher Paulino MD, PhD CLIA Number: [id number] us Estevan Tim APRN LAB BLOOD ORDERABLES Final Res ult Performing Organization Address City/[facility]/ZIP Co de Phone Number [employer]) [address] [place] [address] * SSB (La) (JASS) Antibody, IgG (03/29/2025 11:57 AM EDT) SSB (LA) (JASS) Antibody, IgG 39 0 - 40 AU/mL 03/31/2025 2:47 PM EDT [employer]) Serum Venous blood specimen / Unknown 03/29/2025 11:57 AM EDT 03/29/2025 11:57 AM EDT Narrative [employer]) - 03/31/2025 2:47 PM EDT INTERPRETIVE INFORMATION: SSB (La) (JASS) Ab, IgG 29 AU/mL or Less ............. Negative 30 - 40 AU/mL ................ Equivocal 41 AU/mL or Greater .......... Positive SSB (La) antibody is seen in 50-60% of Sjogren syndrome cases and is specific if it is the only JASS antibody present. 15-25% of patients with systemic lupus erythematosus (SLE) and 5-10% of patients with progressive systemic sclerosis (PSS) also have this antibody. Performed By: [employer] [address] [place] [address] Nutrition Services Associate: Christopher Paulino MD, PhD CLIA Number: [id number] Estevan Tim APRN LAB BLOOD ORDERABLES Final Res ult [employer]) [address] [place] [address] * Glomerular basement membrane antibodies (03/29/2025 11:57 AM EDT) GBM AB, IGG BY MULTIPLEX BEAD ASSAY 0 0 - 19 AU/mL 03/31/2025 2:04 PM EDT [facility]) Blood Venous blood specimen / Unknown Venipuncture / Unknown 03/29/2025 11:57 AM EDT 03/29/2025 11:57 AM EDT Narrative [employer]) - 03/31/2025 2:04 PM EDT INTERPRETIVE INFORMATION: GBM Ab, IgG by Multiplex Bead Assay 19 AU/mL or Less ......... Negative 20-25 AU/mL .............. Equivocal 26 AU/mL or Greater ...... Positive The presence of anti-glomerular basement membrane (GBM) antibodies by Multiplex Bead Assay may aid in the diagnosis of Goodpasture syndrome. False positive results may occur due to reactivity against other chains of type IV collagen. If Multiplex Bead Assay is negative but there is a strong suspicion for disease, renal biopsy may be indicated. A renal biopsy may also be essential in suspected Goodpasture disease with renal involvement, allowing diagnostic confirmation and assessment of renal prognosis. Performed By: [employer] [address] [place] [address] Nutrition Services Associate: Christopher Paulino MD, PhD CLIA Number: [id number] Estevan [employer] GUNSTOCK REPAIRER LAB BLOOD ORDERABLES Final Res ult Performing Organization Address [facility]/ZIP Co de Phone Number [facility] ([place]) [address] [place] [address] * Vitamin D 25 Hydroxy (03/29/2025 11:57 AM EDT) Vitamin D 25 Hydroxy 31.0 20.0 - 80.0 ng/mL 03/29/2025 3:01 PM EDT [facility] Blood Venous blood specimen / Unknown Venipuncture / Unknown 03/29/2025 11:57 AM EDT 03/29/2025 11:57 AM EDT Narrative [facility] - 03/29/2025 3:01 PM EDT Testing performed on [employer], standardized against NIST SRM 2972. When testing samples from patients whose predominant form of vitamin D is vitamin D2, such as patients receiving vitamin D2 supplementation, results that are subtherapeutic should be confirmed with another method, such as LC-MS/MS, before being used for patient management. Vitamin D, 25-Hydroxy reference range, age 18 years and up: Deficiency: <12 ng/mL Insufficiency: 12 to 19 ng/mL Sufficiency: 20 to 80 ng/mL Possible toxicity: >100 ng/mL Estevan [employer] [place] JUSTIN LAB BLOOD ORDERABLES Final Res ult [facility] [address] [place] [address] * (ABNORMAL) Sedimentation Rate, Automated (03/29/2025 11:57 AM EDT) Sedimentation Rate 26(H) <20 mm/hr 2024 2:08 PM EDT [facility] Blood Venous blood specimen / Unknown Venipuncture / Unknown 03/29/2025 11:57 AM EDT 03/29/2025 11:57 AM EDT Estevan [employer] [place] JUSTIN LAB BLOOD ORDERABLES Final Res ult [facility] [address] [place] [address] * (ABNORMAL) CBC and Differential (03/29/2025 11:57 AM EDT) WBC Count 8.18 3.70 - 10.30 10*3/uL LAB HEMATOLOGY METHOD 03/29/2025 1:08 PM EDT [facility] RBC Count 4.67 3.90 - 5.20 10*6/uL LAB HEMATOLOGY METHOD 03/29/2025 1:08 PM EDT [facility] HGB 14.8 11.2 - 15.7 g/dL LAB HEMATOLOGY METHOD 03/29/2025 1:08 PM EDT [facility] HCT 44.1 34.0 - 45.0 % LAB HEMATOLOGY METHOD 03/29/2025 1:08 PM EDT [facility] Platelet Count 258 155 - 369 10*3/uL LAB HEMATOLOGY METHOD 03/29/2025 1:08 PM EDT [facility] MCV 94 79 - 98 fL LAB HEMATOLOGY METHOD 03/29/2025 1:08 PM EDT [facility] MCH 31.7 26.0 - 32.0 pg LAB HEMATOLOGY METHOD 03/29/2025 1:08 PM EDT [facility] MCHC 33.6 30.7 - 35.5 g/dL LAB HEMATOLOGY METHOD 03/29/2025 1:08 PM EDT [facility] RDW 14.8(H) 11.5 - 14.5 % LAB HEMATOLOGY METHOD 03/29/2025 1:08 PM EDT [facility] MPV 9.3 8.8 - 12.5 fL LAB HEMATOLOGY METHOD 03/29/2025 1:08 PM EDT [facility] nRBC 0.0 <=0.0 per 100 WBCs LAB HEMATOLOGY METHOD 03/29/2025 1:08 PM EDT [facility] Differential Type Automated LAB HEMATOLOGY METHOD 03/29/2025 1:08 PM EDT [facility] Neutrophils % 63 % LAB HEMATOLOGY METHOD 03/29/2025 1:08 PM EDT [facility] Lymphocytes % 29 % LAB HEMATOLOGY METHOD 03/29/2025 1:08 PM EDT [facility] Monocytes % 7 % LAB HEMATOLOGY METHOD 03/29/2025 1:08 PM EDT [facility] Eosinophils % 1 % LAB HEMATOLOGY METHOD 03/29/2025 1:08 PM EDT [facility] Basophils % 0 % LAB HEMATOLOGY METHOD 03/29/2025 1:08 PM EDT [facility] Immature Granulocytes % 0 % LAB HEMATOLOGY METHOD 03/29/2025 1:08 PM EDT [facility] Neutrophils Absolute 5.18 1.60 - 6.10 10*3/uL LAB HEMATOLOGY METHOD 03/29/2025 1:08 PM EDT [facility] Lymphocytes Absolute 2.33 1.20 - 3.90 10*3/uL LAB HEMATOLOGY METHOD 03/29/2025 1:08 PM EDT [facility] Monocytes Absolute 0.53 0.30 - 0.90 10*3/uL LAB HEMATOLOGY METHOD 03/29/2025 1:08 PM EDT [facility] Eosinophils Absolute 0.08 0.00 - 0.50 10*3/uL LAB HEMATOLOGY METHOD 03/29/2025 1:08 PM EDT [facility] Basophils Absolute 0.03 0.00 - 0.10 10*3/uL LAB HEMATOLOGY METHOD 03/29/2025 1:08 PM EDT [facility] Immature Granulocytes Absolute 0.03 0.00 - 0.06 10*3/uL LAB HEMATOLOGY METHOD 03/29/2025 1:08 PM EDT [facility] Blood Venous blood specimen / Unknown Venipuncture / Unknown 03/29/2025 11:57 AM EDT 03/29/2025 11:57 AM EDT [facility] - 03/29/2025 1:08 PM EDT Therapeutic decision making should be based on absolute values, rather than percentages. us Estevan Tim APRN LAB BLOOD ORDERABLES Final Res ult [facility] [address] [place] [address] * C3 complement (03/29/2025 11:57 AM EDT) C3 Complement 136 84 - 166 mg/dL 03/29/2025 2:22 PM EDT [facility] Blood Venous blood specimen / Unknown Venipuncture / Unknown 03/29/2025 11:57 AM EDT 03/29/2025 11:57 AM EDT Estevan Oconnor Glenroy GUNSTOCK REPAIRER LAB BLOOD ORDERABLES Final Res ult [facility] [address] [place] [address] * C4 complement (03/29/2025 11:57 AM EDT) C4 Complement 16 13 - 36 mg/dL 03/29/2025 2:22 PM EDT [facility] Blood Venous blood specimen / Unknown Venipuncture / Unknown 03/29/2025 11:57 AM EDT 03/29/2025 11:57 AM EDT Estevan Anastasia Glenroy JUSTIN LAB BLOOD ORDERABLES Final Res ult Performing Organization Address City/[facility]/ZIP Co de Phone Number [facility] [address] [place] [address] * C-Reactive Protein, Plasma (03/29/2025 11:57 AM EDT) CRP, Plasma <3.0 <=8.0 mg/L 03/29/2025 1:38 PM EDT [facility] Blood Venous blood specimen / Unknown Venipuncture / Unknown 03/29/2025 11:57 AM EDT 03/29/2025 11:57 AM EDT Narrative [facility] - 03/29/2025 1:38 PM EDT This CRP test is appropriate for assessment of infection, systemic inflammation and/or tissue injury. To assess cardiovascular disease risk order high sensitivity CRP (CRPH). Estevan Oconnor Glenroy GUNSTOCK REPAIRER LAB BLOOD ORDERABLES Final Res ult [facility] [address] [place] [phone] * (ABNORMAL) Comprehensive Metabolic Panel, Plasma (03/29/2025 11:57 AM EDT) Glucose, Plasma 75 74 - 99 mg/dL 03/29/2025 1:38 PM EDT [facility] BUN, Plasma 29(H) 7 - 21 mg/dL 03/29/2025 1:38 PM EDT [facility] Creatinine, Plasma 0.69 0.60 - 1.10 mg/dL 03/29/2025 1:38 PM EDT [facility] BUN/Creatinine Ratio 42 03/29/2025 1:38 PM EDT [facility] Sodium, Plasma 139 136 - 145 mmol/L 03/29/2025 1:38 PM EDT [facility] Potassium, Plasma 4.1 3.6 - 4.9 mmol/L 03/29/2025 1:38 PM EDT [facility] Chloride, Plasma 106 97 - 107 mmol/L 03/29/2025 1:38 PM EDT [facility] CO2, Plasma 21(L) 22 - 29 mmol/L 03/29/2025 1:38 PM EDT [facility] Anion Gap 12 6 - 16 mmol/L 03/29/2025 1:38 PM EDT [facility] Total Calcium, Plasma 9.6 8.9 - 10.2 mg/dL 03/29/2025 1:38 PM EDT [facility] Total Protein 7.2 6.3 - 7.9 g/dL 03/29/2025 1:38 PM EDT [facility] Albumin, Plasma 4.4 3.5 - 5.2 g/dL 03/29/2025 1:38 PM EDT [facility] AST, Plasma 25 10 - 35 U/L 03/29/2025 1:38 PM EDT [facility] ALT, Plasma 25 10 - 35 U/L 03/29/2025 1:38 PM EDT [facility] Alkaline Phosphatase, Plasma 69 35 - 104 U/L 03/29/2025 1:38 PM EDT [facility] Total Bilirubin, Plasma 0.2 0.2 - 1.1 mg/dL 03/29/2025 1:38 PM EDT [facility] eGFRcr 107.9 mL/min/1.7 3m*2 03/29/2025 1:38 PM EDT [facility] Comment:Reported eGFRcr in m L/min/1.73m2 is based the CKD-EPI 2020 equation that does not use a race coefficient. Blood Venous blood specimen / Unknown Venipuncture / Unknown 03/29/2025 11:57 AM EDT 03/29/2025 11:57 AM EDT Estevan Tim GUNSTOCK REPAIRER LAB BLOOD ORDERABLES Final Res ult Performing Organization Address [facility] Co de Phone Number [facility] [address] [place] [address] * (ABNORMAL) Hemoglobin A1c (12/30/2024 12:05 PM EDT) Hemoglobin A1c 6.2(H) <5.7 % 12/30/2024 2:00 PM EDT [facility] Blood Venous blood specimen / Unknown Venipuncture / Unknown 12/30/2024 12:05 PM EDT 12/30/2024 12:05 PM EDT Narrative [facility] - 12/30/2024 2:00 PM EDT HA1C Interpretive Data: Diagnosis of Diabetes: Diabetic > or = 6.5% Pre-diabetic 5.7 to 6.4% Non-diabetic < or = 5.6% Glycemic Targets for Type I and Type II Diabetics: Non- Adults <7.0% Adults <6.0% Children and Adolescents <7.5% Source: [place] [employer]. Standards of medical care in diabetes,2017. Diabetes Care.2017:40 (suppl 1):S1-S135. us Estevan Tim GUNSTOCK REPAIRER LAB BLOOD ORDERABLES Final Res ult Performing Organization Address [facility] Co de Phone Number [facility] [address] [place] [address] * Acute Hepatitis Panel (11/30/2024 9:01 AM EDT) Hepatitis B Surf Antigen Negative Negative 11/30/2024 12:05 PM EDT [facility] Hepatitis C Antibody Negative Negative 11/30/2024 12:05 PM EDT [facility] Hepatitis A Antibody IgM Negative Negative 11/30/2024 12:05 PM EDT [facility] Hepatitis B Core Antibody IgM Negative Negative 11/30/2024 12:05 PM EDT [facility] Blood Venous blood specimen / Unknown Venipuncture / Unknown 11/30/2024 9:01 AM EDT 11/30/2024 9:01 AM EDT us Estevan Tim APRN LAB BLOOD ORDERABLES Final Res ult [facility] [address] [place] [address] from Last 3 Months or Most Recently Relevant to Health Maintenance Insurance MEDICAID Care Teams Salvage Diver Relationship Specialty Start Date End Date Bala Seaman APRN [address] [place] [address] PCP - General 11/30/24
--- OUTSIDE RECORDS SUMMARY | 2025-06-02 09:38 | XMS_ITS | Encounter Summary ---
Author Organization Healthcare Address [address] [place] [address] Care Team Providers Care Deburrer Machine Name Role Phone Bala Seaman APRN Primary Care Provider [phone] Encounter Details Date Type Department Care Team (Late st Contact Info) Description 02/23/2025 Results Follow-Up [facility] Medicine Specialties [address] [place] [address] Estevan Tim APRN [address] [place] [address] Social History Tobacco Use Types [...] Description 06/30/2025 1:00 PM EDT Office Visit [facility] [address] [place] [address] Estevan Tim, LINER ROLL CHANGER [address] [place] [address] 03/27/2026 9:30 AM EDT Office Visit [facility] [address] [place] [address] Estevan Garcia MD [address] [place] [address] documented as of this encounter Visit Diagnoses Not on filedocumented in this encounter Additional Health Concerns Assessment Noted Time PHQ-9 Depression Total Score: 0 02/22/20 10:20 AM EDT A fall risk assessment has been complete d for the patient 02/21/2025 10:20 AM EDT A Body Mass Index follow-up plan has been documented for the patient 02/21/2025 11:07 AM EDT documented as of this encounter Care Teams Deburrer Machine Relationship Specialty Start Date End Date Bala Seaman APRN [address] [place] [address] PCP - General 11/30/24 documented as of this encounter
--- OUTSIDE RECORDS SUMMARY | 2025-06-02 09:38 | XMS_ITS | Encounter Summary ---
Author Organization Healthcare Address [address] [place] [address] Care Team Providers Care Base Wad Operator Adjuster Name Role Phone Bala Seaman APRN Primary Care Provider [phone] Encounter Details Date Type Department Care Team (Late st Contact Info) Description 05/[facility] [address] [place] [address] Bala Seaman APRN [address] [place] [address] Social History Tobacco Use Types Packs/Day Years [...] on file documented as of this encounter Plan of Treatment Upcoming Encounters Date Type Department Care Team (Late st Contact Info) Description 06/30/2025 1:00 PM EDT Office Visit [facility] [address] [place] [address] Estevan Tim APRN [address] [place] [address] 03/27/2026 9:30 AM EDT Office Visit [facility] [address] [place] [address] Estevan Garcia MD [address] [place] [address] documented as of this encounter [...] documented as of this encounter Care Teams Base Wad Operator Adjuster Relationship Specialty Start Date End Date Bala Seaman APRN [address] [place] [address] PCP - General 11/30/24 documented as of this encounter
--- OUTSIDE RECORDS SUMMARY | 2025-06-02 09:38 | XMS_ITS | Clinical Summary ---
Author Organization [facility] Address [address] [place] [address] Care Team Providers Care Liver Trimmer Name Role Phone Lacie Flower NHAN Primary Care Provider [phone] Allergies No known active allergies Medications aspirin 81 MG EC tablet Take 81 mg by mouth Daily. Active DULoxetine (CYMBALTA) 60 MG capsule Take 60 mg by mouth Daily. Active buPROPion XL (WELLBUTRIN XL) 150 MG 24 hr tablet Take 150 mg by mouth Daily. Active Potassium 99 MG tablet Take 1 tablet by mouth Daily. Active Active Problems Problem Noted Date Diagnosed Date DDD (degenerative disc disease), lumbar 11/22/19 18 Leg pain, posterior, left 11/20/2017 HNP (herniated nucleus pulposus), lumbar 018 Family History Medical History Relation Name Comments No Known Problems Father No Known Problems Mother Relation Name Status Comments Father Mother Social History Tobacco Use Types Packs/Day Years Used Date Smoking Tobacco: Former Cigarettes Q uit: 2018 Smokeless Tobacco: Never Alcohol Use Standard Drinks/Week Comments Yes 0 (1 standard drink = 0.6 oz pur e alcohol) social Abuse Screen Answer Date Recorded Unsafe at Home or Work/School Not on file Feels Threatened by Someone? Not on file 05/2023 Does Anyone Keep You from Co ntacting Others or Doint Things Outside the Home? Not on file 06/23/2023 Physical Sign of Abuse Present Not on file 1 Housing Stability Answer Date Recorded Current Living Arrangements Not on file 05/2023 Potentially Unsafe Housing Conditions Not on jenna e 06/23/2023 Family and Community Support Answer Bayron e Recorded Help with Day-to-Day Activities Not on file 06/23/2023 Lonely or Isolated Not on file 06/23/2023 Employment Answer Date Recorded Do you want help finding or keeping work or a arlen b? Not on file 06/23/2023 Disabilities Answer Date Recorded Concentrating, Remembering, or Making Decisions Difficulty Not on file 06/23/2023 Doing Errands Independently Difficulty Not on fi le 06/23/2023 Education Answer Date Recorded Help with school or training? Not on file Preferred Language Not on file 06/23/2023 Comments Unknown Sex and Gender Information Value Date Recorded Sex Assigned at Not on file Legal Sex Female 12:19 PM EDT Gender Identity Not on file Sexual Orientation Not on file Last Filed Vital Signs Vital Sign Reading Time Taken Comments Blood Pressure 120/76 11/20/2017 12:48 PM EST Pulse - - Temperature 36.8 C (98.3 F) 11/28/2017 8:59 AM EDT Respiratory Rate - - Oxygen Saturation - - Inhaled Oxygen Concentration - - Weight 96.6 kg (213 lb) 11/28/2017 8:59 AM EDT Height 177.8 cm (5' 10 ) 11/28/2017 8:59 AM EDT Body Mass Index 30.56 11/28/2017 8:59 AM EDT Plan of Treatment Health Maintenance Due Date Last Done Comments Annual Gynecologic Pelvic an d Breast Exam 1977 TDAP/TD VACCINES (1 - Tdap) 1996 MAMMOGRAM 2017 ANNUAL PHYSICAL 11/20/2017 HEPATITIS C SCREENING 11/20/2017 COLOGUARD 2022 COLON CANCER SCREENING 5 YEA R SIGMOIDOSCOPY 2022 COLONOSCOPY 2022 COLORECTAL CANCER SCREENING 2022 CT COLONOGRAPHY 2022 FECAL OCCULT BLOOD TEST 2022 FIT Testing (1 year) 2022 INFLUENZA VACCINE 04/15/2025 Pneumococcal Vaccine 0-49 Aged Out No longer eligible based on patient's age to complete this topic Care Teams Liver Trimmer Relationship Specialty Start Date End Date Lacie Flower APRN PCP - General Obstetrics and Gynecology 11/28/17
--- OUTSIDE RECORDS SUMMARY | 2025-06-02 09:38 | XMS_ITS | Encounter Summary ---
Author Organization Healthcare Address [address] [place] [address] Care Team Providers Care Database Marketing Specialist Name Role Phone Skycirasuyapa Bala Suyapa JUSTIN Primary Care Provider Encounter Details Date Type Department Care Team (Latest Contact Info) Description 04/27/2025 Travel Social History Tobacco Use Types Packs/Day Years [...] Description 06/30/2025 1:00 PM EDT Office Visit [facility] [address] [place] [address] Estevan Tim APRN [address] [place] [address] 03/27/2026 9:30 AM EDT Office Visit [facility] [address] [place] [phone] Estevan Garcia MD [address] [address] documented as of this encounter Visit Diagnoses [...] documented as of this encounter Care Teams Database Marketing Specialist Relationship Specialty Start Date End Date Bala Seaman APRN [address] [place] [address] PCP - General 11/30/24 documented as of this encounter
--- OUTSIDE RECORDS SUMMARY | 2025-06-02 09:38 | XMS_ITS | Encounter Summary ---
Author Organization Healthcare Address [address] [place] [address] Care Team Providers Care Market Garden Worker Name Role Phone Bala Seaman APRN Primary Care Provider [phone] Encounter Details Date Type Department Care Team (Late st Contact Info) Description 03/29/2025 Results Follow-Up [facility] Medicine Specialties [address] [place] [address] Estevan Tim APRN [address] [place] [address] Social History Tobacco Use Types [...] much Not at all 03/29/2025 11:03 AM Madonna Johnson Feeling tired or having cam le energy Not at all 03/29/2025 11:03 AM Madonna Johnson Poor appetite or overeating Not at all 03/29/2025 11 :03 AM EDT Madonna Aguiar Feeling bad about yourself - or that you are a failure or have let yourself or your family down Not at all 03/29/2025 11:03 AM Madonna Craig Trouble concentrating on thi ngs, such as reading the newspaper or watching television Not at all 03/29/2025 11:03 AM Madonna Johnson Moving or speaking so slowly that other people could have noticed? Or the opposite - being so fidgety or restless that you have been moving around a lot more than usual. Not at all 03/29/2025 11:03 AM FIDELINAT Madonna Aguiar Thoughts that you would be b nakita off or hurting yourself in some way Not at all 03/29/2025 11:03 AM Madonna Johnson Patient Health Questionnaire -9 Score 0 03/29/2025 11:03 AM aMdonna Johnson * How difficult have these problems made [...] Description 06/30/2025 1:00 PM EDT Office Visit [facility] Medicine Specialties [address] [place] [address] Estevan Tim, BALLPOINT PEN ASSEMBLY MACHINE OPERATOR [address] [place] [address] 03/27/2026 9:30 AM EDT Office Visit [facility] Care [address] [place] [address] Estevan Garcia MD [address] [place] [address] documented as of this encounter [...] documented as of this encounter Care Teams Market Garden Worker Relationship Specialty Start Date End Date Bala Seaman APRN [address] [place] [address] PCP - General 11/30/24 documented as of this encounter
--- NOTE | 2025-06-02 09:45 | MR_ITS ---
FINAL REPORT TECHNIQUE: Multiplanar MR without contrast CLINICAL HISTORY: right sided Neck pain. right arm numbness and tingling. headache FINDINGS: Limited images of the posterior fossa are unremarkable. Alignment is normal. Cervical spinal cord shows normal signal and contour. C2-3: Unremarkable C3-4: Tiny central disc protrusion without canal stenosis. C4-5: Left neuroforaminal narrowing. C5-6: Mild diffuse disc bulge and mild facet arthropathy. C6-7: Small right paracentral disc protrusion without nerve root compression or canal stenosis. C7-T1: Unremarkable IMPRESSION: Mild, multilevel degenerative changes. Reviewed, Interpreted and Dictated by Susie Castillo MD Transcribed by Divya Goldman Authenticated and [facility]
== END 2025-06-02 23:59 | disposition home or self-care (01) ==
LOC: RAD 09:36
PROVIDERS: PCP Nurse Practitioner Family; Visit Provider Nurse Practitioner Family
DX: M47.812 Spondylosis without myelopathy or radiculopathy, cervical region (principal)
CPT/HCPCS: 72141